=== PATIENT | female | born 1960 | race Caucasian/White ===

== ENCOUNTER 2020-05-25 19:05 | Inpatient (IN) | payer MEDICARE, SELFPAY ==
[2020-05-25 18:25] VITALS: BMI 36.3
--- NOTE | 2020-05-25 18:26 | NURSING ---
arrived from [facility] via squad.
--- NOTE | 2020-05-25 19:02 | HP.PCM_ITS ---
Problem List (1) Acute cholecystitis Status: Acute History of Present Illness Date of Admission: 05/25/20 The patient is a 59 year old F who presented with abdominal pain. The patient reports that she woke up on New Year's morning which was 2 days ago with epigastric pain radiating to the right side as well as nausea and vomiting. Over the last 2 days the pain is worsened but the nausea and vomiting has subsided. Patient is still experiencing epigastric pain radiating to the right upper quadrant. She denies any fevers or chills or Covid contacts. Past Medical History Past Medical History (Chronic Problems): Chronic Problems (Last Updated 11/14/19 @ 09:16 by Chloe Motley) Diabetes (Chronic) Asthma (Chronic) Essential hypertension (Chronic) GERD (gastroesophageal reflux disease) (Chronic) Medical History: Medical History (Last Updated 11/14/19 @ 09:16 by Chloe Motley) Diabetes (Chronic) E11.9 Bilateral edema of lower extremity (Acute) R60.0 Asthma (Chronic) J45.909 Essential hypertension (Chronic) I10 GERD (gastroesophageal reflux disease) (Chronic) K21.9 Carpal tunnel syndrome on right G56.01 DDD (degenerative disc disease) Depression F32.9 Fibromyalgia M79.7 Allergies egg Allergy (Severe, Verified 11/14/19 09:07) Hives, Swelling, Vomiting gabapentin Adverse Reaction (Severe, Verified 11/14/19 09:07) Hallucinations Home Medications: Ambulatory Orders Medication Instructions Recorded albuterol sulfate 90 mcg/actuation 2 puff INHALATION Q4H PRN g 11/14/19 aerosol inhaler amitriptyline 25 mg tablet 25 mg PO QHS 11/14/19 cholecalciferol (vitamin D3) 25 25 mcg PO DAILY 11/14/19 mcg (1,000 unit) capsule cromolyn 4 % eye drops 1 drp OPHTHALMIC 6XD 11/14/19 dicyclomine 10 mg capsule 10 mg PO Q6H PRN cap 11/14/19 ferrous sulfate 325 mg (65 mg 325 mg PO BID 11/14/19 iron) tablet fexofenadine 60 mg tablet 60 mg PO BID PRN 11/14/19 fluticasone propionate 50 1 spray INTRANASAL DAILY 11/14/19 mcg/actuation nasal spray,suspension furosemide 40 mg tablet 40 mg PO DAILY 11/14/19 ibuprofen 800 mg tablet 800 mg PO TID PRN 11/14/19 levocetirizine 5 mg tablet 5 mg PO QPM PRN 11/14/19 metformin 1,000 mg tablet 1,000 mg PO BID 11/14/19 montelukast 10 mg tablet 10 mg PO QHS 11/14/19 pantoprazole 40 mg tablet,delayed 40 mg PO BID tab 11/14/19 release paroxetine HCl 10 mg tablet 10 mg PO DAILY 11/14/19 pramipexole 1 mg tablet 1 mg PO QHS 11/14/19 Surgical History: Surgical History (Last Updated 11/14/19 @ 09:05 by Chloe Motley) History of arthroscopic surgery of elbow Z98.890 History of foot surgery Z98.890 Smoking Status: Former smoker Review of Systems Constitutional: Denies: Anorexia, Fever HEENT: Denies: Dysphasia Cardiovascular: Denies: Chest Pain Respiratory: Denies: Cough, Shortness of Breath Gastrointestinal: Reports: Abdominal Pain, Nausea, Vomiting. Denies: Constipation, Diarrhea Genitourinary: Denies: Dysuria Musculoskeletal: Denies: Joint Tenderness Skin: Denies: Jaundice Neurological: Denies: Balance problems Hematologic/ Lymphatic: Denies: Anemia VTE Information - Inpt Only VTE Present on Admission: No VTE Mechan Device Prophylaxis: SCD's - Physical Exam Vitals/I&O's: Weight: 212 lb 1.355 oz Body Mass Index (BMI) 36.3 General: Alert, Oriented x3 Lungs: Normal air movement Cardiovascular: Regular rate, Regular Rhythm Abdomen: Soft, Non-Distended, Tender - Tender in the right upper quadrant positive Walters sign Extremities: No clubbing Musculoskeletal: No Muscle Wasting Neurological: Cranial nerves II-XII grossly intact Psych/Mental Status: Normal Affect Current Medications Sodium Chloride () 250 mls @ 15 mls/hr IV .[id number] PRN PRN Reason: Saline Flush Sodium Chloride (0.9% Saline Lock 10 Ml Syringe) 10 - 40 ml IV UD PRN PRN Reason: SALINE FLUSH Assessment/Plan All Active Problems (Last Updated 11/14/19 @ 09:16 by Chloe Motley) Acute cholecystitis (Acute) Bilateral edema of lower extremity (Acute) 59-year-old female with acute cholecystitis 1. Patient was transferred from outside ER with acute cholecystitis. The patient has had 2 days of abdominal pain and a CT scan which showed thickened gallbladder wall with significant stranding around the gallbladder. The patient has an elevated white count of 18. The patient was also hypokalemic and this will be replaced. The patient was given Zosyn at the outside hospital. She was also Covid tested at the outside hospital and I am trying to receive those results. 2. I recommend antibiotics and n.p.o. overnight and laparoscopic cholecystectomy tomorrow. I discussed the procedure in detail with the patient. I discussed the risks, benefits, and alternatives of the procedure. I discussed the risks including but not limited to bleeding, infection, injury to surrounding organs such as the liver, bile duct, bowels. I did discuss the possibility of having to convert to an open procedure as well as the possibility that if any injuries occurred this may necessitate further surgery at a tertiary care center. I also discussed the possibility of partial cholecystectomy with subsequent ERCP and stent placement if the inflammation is too severe to proceed with laparoscopic cholecystectomy. Pancho Weinberg MD Pager: [facility] [address] [place] [address] [place] [address] Office:
[2020-05-25] MEDS: 0.9% Normal Saline 1,000 ML 100 ML IV (19:55)
[2020-05-25 19:56] VITALS: BP 124/79; PULSE 89; RESP 18; TEMP 37.2; O2SAT 94
[2020-05-25] MEDS: Morphine 2 MG/ML Syringe IV ×2 (20:01→23:44)
[2020-05-25 20:31] LABS: Bedside Glucose 111 mg/dL (70-110)
[2020-05-25] MEDS: Potassium Chloride 10mEq/100mL 10 MEQ/100 ML IV.SOLN. 100 MEQ IV BOLUS ×3 (21:25→23:53)
[2020-05-25] MEDS: 0.9% Saline Lock 10 ML Syringe IV (23:15)
[2020-05-25] MEDS: Pramipexole Di-HCl 1 MG Tablet PO (23:17)
[2020-05-25] MEDS: Montelukast 10 MG Tablet PO (23:17)
[2020-05-25] MEDS: Amitriptyline 25 MG Tablet PO (23:17)
[2020-05-25] MEDS: Pantoprazole Sodium 40 MG Tablet PO (23:17)
[2020-05-26] VITALS (20 sets, daily range): BP systolic 94–131; BP diastolic 58–78; PULSE 70–110; RESP 15–24; TEMP 36.6–37.2; O2SAT 89–96; BMI 35.0
[2020-05-26 00:15] LABS: Bedside Glucose 122 mg/dL (70-110)
[2020-05-26] MEDS: Potassium Chloride 10mEq/100mL 10 MEQ/100 ML IV.SOLN. 100 MEQ IV BOLUS (01:06)
--- NOTE | 2020-05-26 05:00 | EKG12_ITS ---
Test Reason : PRE-OP Blood Pressure : / mmHG Vent. Rate : 084 BPM Atrial Rate : 084 BPM P-R Int : 150 ms QRS Dur : 078 ms QT Int : 348 ms P-R-T Axes : 006 052 010 degrees QTc Int : 411 ms Normal sinus rhythm Low voltage QRS Borderline ECG No previous ECGs available Confirmed by AGATA BAKER, KOLTON ([id number]), editor managing director KACI DAVID ([id number]) on 05/27/2020 9:00:36 AM Referred By: Pancho Weinberg Confirmed By:KOLTON PARMAR MD
[2020-05-26] MEDS: 0.9% Normal Saline 1,000 ML 100 ML IV ×2 (06:24→18:30)
[2020-05-26 06:50] LABS: Bedside Glucose 111 mg/dL (70-110)
[2020-05-26 07:01] LABS: Absolute Lymphocyte Count 1.65 X10^3/uL (0.83-4.51); Absolute Neutrophil Count 12.3 X10^3/uL (2.0-7.7); Basophil# 0.03 X10^3/uL; Basophil% 0.2 % (0-1); Eosinophil# 0.03 X10^3/uL; Eosinophils% 0.2 % (0-5); Hematocrit 36.4 % (37-47); Hemoglobin 11.8 g/dL (12.0-15.0); Lymphocyte # 1.65 X10^3/ul (4.0); Lymphocyte % 10.8 % (19-41); Mean Corp Hgb Conc 32.4 g/dL (32-36); Mean Corpuscular Hgb 33.1 pg (27.0-32.0); Mean Platelet Vol. 10.5 fl (6.2-12.0); Monocyte# 1.16 X10^3/uL; Monocyte% 7.6 % (0-10); NRBC Flagged by Analyzer 0 % (0-5); Neutrophil # 12.26 X10^3/uL (2.7-7.7); Neutrophil % 79.8 % (47-70); Platelet Count 189 K/mm3 (150-450); RBC Distribution Width CV 15.6 % (11.6-14.6); RBC Distribution Width SD 58.4 fl (35.1-43.9); Red Blood Count 3.57 M/mm3 (4.2-5.4); White Blood Count 15.3 K/mm3 (4.4-11.0)
[2020-05-26 07:28] LABS: ALB/GLOB Ratio 0.4 RATIO (0.9-2.4); AST(SGOT) 19 U/L (15-37); Alanine Aminotransfer ALT/SGPT 26 U/L (13-56); Albumin, Serum 2.3 g/dL (3.2-5.0); Alkaline Phosphatase 95 U/L (45-117); Anion Gap 6 (5-15); BUN 10 mg/dL (7-18); Calcium,Total 8.2 mg/dL (8.5-10.1); Chloride 107 mmol/L (98-107); Creatinine, Serum 0.83 mg/dL (0.55-1.02); EST Glomerular Filtration Rate 74 mL/min (>60); Est Glom Filt Rate - Afr Amer 90 mL/min (>60); Estimated Creatinine Clearance 62.24 ml/min; Globulin 5.3 g/dL (2.2-4.2); Glucose 102 mg/dL (74-106); Potassium 3.9 mmol/L (3.5-5.1); Protein, Total 7.6 g/dL (6.4-8.2); Sodium Level 137 mmol/L (136-145)
[2020-05-26 07:32] LABS: Hemoglobin A1c 6.9 % (3.8-5.6)
[2020-05-26] MEDS: Albuterol 2.5 MG/3 ML VIAL.NEB. INHALATION (07:58)
--- NOTE | 2020-05-26 09:30 | GALL_PTH ---
PATIENT: CHRISTIANO QUESADA LOC: MS3 U#:[id number] AGE/SX: 59/F ROOM: ME314 RE05/26/[address]: Dr. Pancho Weinberg MD : 1960 BED: 1 DIS: 05/27/2020 SPEC #: [id number] RECD: 05/26/20 12:18 STATUS: [place] #: [id number] ACACIA: 05/26/20 09:[address]: Pancho Weinberg DEPT: SURGICAL PATHOLOGY RECD BY: Ana Payton ENTERED: 05/26/20 12:30 SP TYPE: MARISOL BETHEA DR: Dr. Christelle Retana DO Tissues: Gallbladder, NOS Procedures: Surgery Specimen Level III HEADER OPERATION: Laparoscopic cholecystectomy with IOC PRE-OP DIAGNOSIS: Acute cholecystitis TISSUE SUBMITTED: Gallbladder MICROSCOPIC DIAGNOSIS Gallbladder, cholecystectomy: Acute and chronic hemorrhagic and ulcerated cholecystitis. Reactive epithelial changes. No stones are identified in the container or in the gallbladder. SJ:lisa 05/27/2020 MICROSCOPIC DESCRIPTION Slides are reviewed. GROSS DESCRIPTION Received is one container labeled with the patient's name and designated gallbladder. The specimen consists of a gallbladder measuring 10 x 4 x 2 cm. The gallbladder is open along one aspect. This opening measures 4 cm in greatest dimension. No distinct bile duct is identified. The mucosa is reddish-hinson and granular in appearance. No stones are identified. No mass lesions are seen. The gallbladder wall averages 0.4 cm in thickness. Brim Pouncing Machine Operator sections are submitted in one cassette. / AM:lisa 05/26/2020 TC:2 CPT: 18806
[2020-05-26] MEDS: Bupiv/Epi 0.25% 30 ML Vial (10:45)
--- NOTE | 2020-05-26 11:21 | PCM.OPRPT ---
Problem List (1) Acute cholecystitis Status: Acute Report of Operation Date of Procedure: 05/26/20 Pre-Operative Diagnosis: Acute cholecystitis Post-Operative Diagnosis: Same Surgery/Procedure Performed:: Laparoscopic partial cholecystectomy Drains: WILMAR to bulb suction Description of Procedure: After obtaining informed consent patient was brought back to the operating room. General anesthesia was induced. The abdomen was prepped and draped in usual sterile fashion. A small midline incision was made superior to the umbilicus and deepened to the level of fascia. The fascia was elevated and incised. Next the peritoneum was elevated and incised in the same fashion. Finger sweep was performed and the Gusman trocar was placed into the abdomen. The balloon was inflated. The abdomen was inflated to 15 mmHg. Next a camera was introduced into the abdomen and the abdomen was inspected. Next under direct visualization three 5-mm ports were placed one subxiphoid and 2 subcostal. Next the gallbladder was elevated and retracted toward the right shoulder. The gallbladder was extremely inflamed and tightly adherent to the surrounding fat and transverse colon. It was dissected free bluntly. Once the infundibulum was reached the gallbladder perforated. The infundibulum. Gangrenous and purulent material came from the gallbladder.This was suctioned dry. I was unable to dissect the cystic duct or artery. At this time The procedure was converted to a partial cholecystectomy. Harmonic scalpel was used to circumferentially divide the gallbladder. Next the gallbladder was taken off the liver bed until the fundus was reached and removed. The gallbladder was placed into a bag. The liver bed was inspected and irrigated and suctioned dry. The remnant of the gallbladder was cauterized at the mucosal level and the liver bed appeared hemostatic. A 15 Mozambican round drain was placed into the lateral port into the gallbladder fossa across the gallbladder remnant. It was sutured to the skin using 3-0 nylon suture. The abdomen was suctioned dry. The 5 mm ports were removed under direct visualization. The umbilical port was then removed and the air was removed from the abdomen. The gallbladder was removed within the Endo Catch bag. Next using an 0 Vicryl suture the umbilical fascia was closed in a [id number] fashion. The umbilical port site was irrigated local anesthetic was administered to all the incisions. All the incisions were closed with interrupted subcuticular 4-0 Monocryl sutures followed by Steri-Strips and dressings. The patient was awoken and taken to PACU in stable condition. - Admit VTE Documentation VTE Mechan Device Prophylaxis: SCD's
[2020-05-26] MEDS: Ipratropium/Albuterol Sulfate 3 ML AMPUL.NEB INHALATION (11:45)
[2020-05-26 12:26] LABS: Bedside Glucose 150 mg/dL (70-110)
[2020-05-26] MEDS: Morphine 2 MG/ML Syringe IV ×2 (15:51→19:38)
[2020-05-26] MEDS: 0.9% Saline Lock 10 ML Syringe IV (15:52)
[2020-05-26 17:01] LABS: Bedside Glucose 230 mg/dL (70-110)
[2020-05-26] MEDS: Insulin Lispro 100 UNIT/ML INSULN.PEN SC ×2 (17:56→21:52)
[2020-05-26] MEDS: Acetaminophen 325 MG Tablet 650 MG PO (17:59)
[2020-05-26] MEDS: Montelukast 10 MG Tablet PO (20:34)
[2020-05-26] MEDS: Amitriptyline 25 MG Tablet PO (20:35)
[2020-05-26] MEDS: Pantoprazole Sodium 40 MG Tablet PO (20:35)
[2020-05-26] MEDS: Pramipexole Di-HCl 1 MG Tablet PO (20:35)
[2020-05-26 22:05] LABS: Bedside Glucose 172 mg/dL (70-110)
[2020-05-27] VITALS (10 sets, daily range): BP systolic 110–136; BP diastolic 61–97; PULSE 64–108; RESP 14–18; TEMP 36.1–37.2; O2SAT 93–98; BMI 35.0
[2020-05-27] MEDS: 0.9% Normal Saline 1,000 ML 100 ML IV ×2 (03:29→15:49)
[2020-05-27] MEDS: Morphine 2 MG/ML Syringe IV (06:16)
[2020-05-27 06:36] LABS: Bedside Glucose 132 mg/dL (70-110)
[2020-05-27 07:13] LABS: Absolute Lymphocyte Count 1.57 X10^3/uL (0.83-4.51); Absolute Neutrophil Count 11.3 X10^3/uL (2.0-7.7); Basophil# 0.02 X10^3/uL; Basophil% 0.1 % (0-1); Hematocrit 32.2 % (37-47); Hemoglobin 10.2 g/dL (12.0-15.0); Lymphocyte # 1.57 X10^3/ul (4.0); Lymphocyte % 11.3 % (19-41); Mean Corp Hgb Conc 31.7 g/dL (32-36); Mean Corpuscular Hgb 32.6 pg (27.0-32.0); Mean Corpuscular Volume 102.9 fL (81-99); Mean Platelet Vol. 10.9 fl (6.2-12.0); Monocyte# 0.64 X10^3/uL; Monocyte% 4.6 % (0-10); NRBC Flagged by Analyzer 0 % (0-5); Neutrophil # 11.34 X10^3/uL (2.7-7.7); Neutrophil % 81.6 % (47-70); Platelet Count 184 K/mm3 (150-450); RBC Distribution Width CV 15.8 % (11.6-14.6); RBC Distribution Width SD 59.5 fl (35.1-43.9); Red Blood Count 3.13 M/mm3 (4.2-5.4); White Blood Count 13.9 K/mm3 (4.4-11.0)
[2020-05-27 07:43] LABS: ALB/GLOB Ratio 0.4 RATIO (0.9-2.4); AST(SGOT) 49 U/L (15-37); Alanine Aminotransfer ALT/SGPT 55 U/L (13-56); Alkaline Phosphatase 100 U/L (45-117); Anion Gap 8 (5-15); BUN 14 mg/dL (7-18); Calcium,Total 7.6 mg/dL (8.5-10.1); Chloride 105 mmol/L (98-107); Creatinine, Serum 0.78 mg/dL (0.55-1.02); EST Glomerular Filtration Rate 80 mL/min (>60); Est Glom Filt Rate - Afr Amer 97 mL/min (>60); Estimated Creatinine Clearance 66.23 ml/min; Globulin 5.2 g/dL (2.2-4.2); Glucose 132 mg/dL (74-106); Potassium 3.8 mmol/L (3.5-5.1); Protein, Total 7.2 g/dL (6.4-8.2); Sodium Level 135 mmol/L (136-145)
--- NOTE | 2020-05-27 08:40 | PCM.PN.SRG ---
Patient Problems: Active and Suspected Problems (Last Updated 11/14/19 @ 09:16 by Chloe Motley) Acute cholecystitis (Acute) Subjective: Patient was not complain of any nausea or vomiting this morning - Physical Exam Vitals/I&O's: Vital Signs Temp Pulse Resp BP Pulse Ox 98.4 F 64 18 110/71 94 05/27/20 06:45 05/27/20 06:45 05/27/20 06:45 05/27/20 06:45 05/27/20 06:45 Oxygen Flow Rate (L/min) 2 Oxygen Delivery Method Nasal Cannula Weight: 204 lb 2.369 oz Body Mass Index (BMI) 35.0 Finger Stick Blood Glucose 150 Intake and Output for Last 24 Hours 05/25/20 05/26/20 05/27/20 23:59 23:59 23:59 Intake Total 196.58 / 196.58 3500 / 3500 1298.33 / 1298.33 Output Total 1415 / 1415 400 / 400 Balance 196.58 / -53.42 2085 / 2085 898.33 / 898.33 General: Alert, Oriented x3 Lungs: Normal air movement Abdomen: Soft, Non-Distended Laboratory Results 05/26/20 12:19: POC Glucose 150 H 05/26/20 16:48: POC Glucose 230 H 05/26/20 21:51: POC Glucose 172 H 05/27/20 06:18: WBC 13.9 H, RBC 3.13 L, Hgb 10.2 L, Hct 32.2 L, MCV 102.9 H, MCH 32.6 H, MCHC 31.7 L, RDW Std Deviation 59.5 H, RDW Coeff of Esteban 15.8 H, Plt Count 184, MPV 10.9, Immature Gran % (Auto) 2.400 H, Neut % (Auto) 81.6 H, Lymph % (Auto) 11.3 L, [place] % (Auto) 4.6, Eos % (Auto) 0.0, Baso % (Auto) 0.1, Absolute Neuts (auto) 11.3 H, Absolute Lymphs (auto) 1.57, Nucleated RBC % 0 05/27/20 06:18: Sodium 135 L, Potassium 3.8, Chloride 105, Carbon Dioxide 22.0, Anion Gap 8, BUN 14, Creatinine 0.78, Estim Creat Clear Calc 66.23, Est GFR (MDRD) Af Amer 97, Est GFR (MDRD) Non-Af 80, BUN/Creatinine Ratio 18.0, Glucose 132 H, Calcium 7.6 L, Total Bilirubin 0.40, AST 49 H, ALT 55, Alkaline Phosphatase 100, Total Protein 7.2, Albumin 2.0 L, Globulin 5.2 H, Albumin/Globulin Ratio 0.4 L 05/27/20 06:31: POC Glucose 132 H Current Medications Acetaminophen (Acetaminophen 325 Mg Tablet) 650 mg PO Q4H PRN PRN PRN Reason: Pain 1-10 or Fever Last Admin: 05/26/20 17:59 Dose: 650 mg Documented by: Albuterol Sulfate (Albuterol 2.5 Mg/3 Ml Vial.Neb.) 2.5 mg INHALATION Q4H PRN PRN PRN Reason: breathing Last Admin: 05/26/20 07:58 Dose: 2.5 mg Documented by: Amitriptyline HCl (Amitriptyline 25 Mg Tablet) 25 mg PO QHS [facility] Last Admin: 05/26/20 20:35 Dose: 25 mg Documented by: Dextrose (Dextrose 50%-Water 25 Gm/50 Ml Disp.Syrin) 0 gm IV X1 PRN; Protocol PRN Reason: Hypoglycemia Dicyclomine HCl (Dicyclomine 10 Mg Capsule) 10 mg PO Q6H PRN PRN PRN Reason: ibs Fluticasone Propionate (Fluticasone 0.05% 1 [place] Nasal.Sry) 1 spray NASAL DAILY ROSALIA Last Admin: 05/26/20 11:08 Dose: Not Given Documented by: Furosemide (Furosemide 40 Mg Tablet) 40 mg PO DAILY ROSALIA Last Admin: 05/26/20 11:08 Dose: Not Given Documented by: Glucagon (Glucagon 1 Mg/Ml Syringe) 1 mg IM .X1 PRN PRN Reason: Hypoglycemia Sodium Chloride () 250 mls @ 15 mls/hr IV .Q45T98L PRN PRN Reason: Saline Flush Last Infusion: 05/25/20 23:29 Dose: 0 mls/hr Documented by: Sodium Chloride () 1,000 mls @ 100 mls/hr IV .Q10H ROSALIA Last Admin: 05/27/20 03:29 Dose: 100 mls/hr Documented by: Piperacillin Sod/Tazobactam (Sod 3.375 gm/ Sodium Chloride) 50 mls @ 12.5 mls/hr IV Q8 [facility] Last Admin: 05/27/20 05:43 Dose: 12.5 mls/hr Documented by: Insulin Human Lispro (Insulin Lispro 100 Unit/Ml Insuln.Pen) 0 unit SC Q6 [facility]; Protocol Last Admin: 05/27/20 06:35 Dose: Not Given Documented by: Loratadine (Loratadine 10 Mg Tablet) 10 mg PO DAILY PRN PRN PRN Reason: seasonal allergies Montelukast Sodium (Montelukast 10 Mg Tablet) 10 mg PO QHS [facility] Last Admin: 05/26/20 20:34 Dose: 10 mg Documented by: Morphine Sulfate (Morphine 2 Mg/Ml Syringe) 2 - 4 mg IV Q2H PRN PRN PRN Reason: Pain Score 4-10 Last Admin: 05/27/20 06:16 Dose: 2 mg Documented by: Ondansetron HCl (Ondansetron 4 Mg/2 Ml Vial) 4 mg IV Q6H PRN PRN PRN Reason: NAUSEA Pantoprazole Sodium (Pantoprazole Sodium 40 Mg Tablet) 40 mg PO BID [facility] Last Admin: 05/26/20 20:35 Dose: 40 mg Documented by: Paroxetine HCl (Paroxetine 10 Mg Tablet) 10 mg PO DAILY [facility] Last Admin: 05/26/20 11:08 Dose: Not Given Documented by: Pramipexole Dihydrochloride (Pramipexole Di-Hcl 1 Mg Tablet) 1 mg PO QHS [facility] Last Admin: 05/26/20 20:35 Dose: 1 mg Documented by: Sodium Chloride (0.9% Saline Lock 10 Ml Syringe) 10 - 40 ml IV UD PRN PRN Reason: SALINE FLUSH Last Admin: 05/26/20 15:52 Dose: 10 ml Documented by: Medical Necessity - Tobacco Use Smoking Status: Former smoker Assessment/Plan All Active Problems (Last Updated 11/14/19 @ 09:16 by Chloe Motley) Acute cholecystitis (Acute) Bilateral edema of lower extremity (Acute) 59-year-old female status post partial laparoscopic cholecystectomy 1. The patient started having bilious drainage from her WILMAR overnight. I explained this was a possibility yesterday afternoon. I discussed ERCP with her with stent placement. I discussed this this morning and I discussed the risks of bleeding, infection, perforation of the bile duct or bowel, pancreatitis. I discussed stent placement as well as ERCP for stent removal in the future. The patient was agreeable and I will plan for ERCP this afternoon. Pancho Weinberg MD Pager: [facility] [address] [place] [address] [address] [place] [address] Office:
[2020-05-27 11:36] LABS: Bedside Glucose 124 mg/dL (70-110)
--- NOTE | 2020-05-27 12:30 | RAD_ITS ---
STUDY: ERCP. REASON FOR EXAM: Female, 59 years old. ERCP with stent placement FLUOROSCOPY TIME (if supplied): ( 43 seconds ) minutes/seconds. Single image was submitted. TECHNIQUE: An ERCP was performed by the surgeon. A single image was submitted. COMPARISON: None. FINDINGS: The common bile duct is not dilated. A stent was placed. RAD/ERCP Biliary Only IMPRESSION: Placement of a CBD stent. Electronically Signed: Nba Molina, at 8:56 EST , Service support ,
--- NOTE | 2020-05-27 14:10 | CASEMGMT ---
RN CM attempted to complete assessment at this time. Patient is out of room at procedure. CM will attempt again at later time.
--- NOTE | 2020-05-27 14:13 | OP.CCLET_ITS ---
05/27/2020 Christelle Retana Re : ERCP procedure for Imani Molina Dear Mazin This procedure was performed on Wednesday, May 27, 2020. My impressions and recommendations are as follows: Impressions : - A biliary sphincterotomy was performed. - One plastic stent was placed into the common bile duct. Recommendations : - [facility]. - Resume previous diet. My findings are described in the full procedure note, which is enclosed. If I can be of further assistance, please feel free to contact me at Doctor phone number(s): , Work: . Sincerely, Pancho Weinberg MD 05/27/2020 2:12:26 PM This report has been signed electronically.
--- NOTE | 2020-05-27 14:13 | OP.ERCP_ITS ---
Patient Name: Imani Molina Procedure Date: 05/27/2020 1:25 PM Date of : 1960 Age: 59 Procedure: ERCP Indications: Suspected bile leak Providers: Pancho Weinberg MD Referring MD: Pancho Weinberg MD Medicines: General Anesthesia Patient Profile: This is a 59 year old female. Refer to note in patient chart for documentation of history and physical. Complications: No immediate complications. Procedure: Pre-Anesthesia Assessment: - Prior to the procedure, a History and Physical was performed, and patient medications and allergies were reviewed. The patient's tolerance of previous anesthesia was also reviewed. The risks and benefits of the procedure and the sedation options and risks were discussed with the patient. All questions were answered, and informed consent was obtained. Prior Anticoagulants: The patient has taken no previous anticoagulant or antiplatelet agents. After reviewing the risks and benefits, the patient was deemed in satisfactory condition to undergo the procedure. After obtaining informed consent, the scope was passed under direct vision. Throughout the procedure, the patient's blood pressure, pulse, and oxygen saturations were monitored continuously. The [id number] endoscope was introduced through the mouth, and advanced to the duodenum and used to inject contrast into the bile duct. The ERCP was accomplished without difficulty. The patient tolerated the procedure well. Scope In: 1:53:18 PM Scope Out: 2:00:15 PM Total Procedure Duration Time 0 hours 6 minutes 57 seconds Findings: A 0.035 inch x 260 cm straight Dreamwire was passed into the biliary tree. The sphincterotome was passed over the guidewire and the bile duct was then deeply cannulated. Contrast was injected. Opacification of the main bile duct was successful. Biliary sphincterotomy was made with a monofilament sphincterotome using ERBE electrocautery. There was no post-sphincterotomy bleeding. One 7 Fr by 5 cm plastic stent with a single external flap and a single internal flap was placed into the common bile duct. Bile flowed through the stent. The stent was in good position. Impression: - A biliary sphincterotomy was performed. - One plastic stent was placed into the common bile duct. Recommendation: - [facility]. - Resume previous diet. Procedure Code(s): --- Professional --- 15665, Endoscopic retrograde cholangiopancreatography (ERCP); with placement of endoscopic stent into biliary or pancreatic duct, including pre- and post-dilation and guide wire passage, when performed, including sphincterotomy, when performed, each stent CPT copyright 2017 [employer]. All rights reserved. The codes documented in this report are preliminary and upon certified professional coder review may be revised to meet current compliance requirements. Pancho Weinberg MD 05/27/2020 2:12:26 PM This report has been signed electronically. Number of Addenda: 0 Note Initiated On: 05/27/2020 1:25 PM
--- NOTE | 2020-05-27 14:15 | DCINST_ITS ---
Discharge Diet: Light diet - advance as tolerated - SMALL PORTIONS Discharge Activity: Return to Normal Activity, May Shower Lifting Restrictions: 20 lbs for 2 weeks Additional Activity Instructions:: Pain medication may cause nausea. You should typically eat light foods as you take your pain medications. Pain medication may also cause constipation. If this is a problem for you, please discuss with your doctor. Call your doctor if your incision/area has: Continuous Slow Oozing, Sudden Increased Bleeding, Increased Pain/ Swelling, Increased Redness, Foul Smelling Discharge, Fever of 101 or Higher Call your doctor if you observe: Fever of 101 or Higher Suture Line Care: Avoid Pulling/Pushing, Avoid Pinching/Bending Drain: Suction Additional Dressing/Incision Instructions:: Leave operative bandaids on for 2 days. When you remove dressing, leave Steri-Strips on until your follow-up appointment, or until the Steri-Strips fall off on their own. Allergies/Adverse Reactions: Allergies egg Allergy (Severe, Verified 11/14/19 09:07) Hives, Swelling, Vomiting gabapentin Adverse Reaction (Severe, Verified 11/14/19 09:07) Hallucinations Medications to take at Discharge albuterol sulfate 90 mcg/actuation aerosol inhaler 2 puff INHALATION Q4H PRN g 11/14/19 amitriptyline 25 mg tablet 25 mg PO QHS 11/14/19 cholecalciferol (vitamin D3) 25 mcg (1,000 unit) capsule 25 mcg PO DAILY 11/14/19 cromolyn 4 % eye drops 1 drp OPHTHALMIC 6XD 11/14/19 dicyclomine 10 mg capsule 10 mg PO Q6H PRN cap 11/14/19 ferrous sulfate 325 mg (65 mg iron) tablet 325 mg PO BID 11/14/19 fexofenadine 60 mg tablet 60 mg PO BID PRN 11/14/19 fluticasone propionate 50 mcg/actuation nasal spray,suspension 1 spray INTR ANASAL DAILY 11/14/19 furosemide 40 mg tablet 40 mg PO DAILY 11/14/19 ibuprofen 800 mg tablet 800 mg PO TID PRN 11/14/19 levocetirizine 5 mg tablet 5 mg PO QPM PRN 11/14/19 metformin 1,000 mg tablet 1,000 mg PO BID 11/14/19 montelukast 10 mg tablet 10 mg PO QHS 11/14/19 pantoprazole 40 mg tablet,delayed release 40 mg PO BID tab 11/14/19 paroxetine HCl 10 mg tablet 10 mg PO DAILY 11/14/19 pramipexole 1 mg tablet 1 mg PO QHS 11/14/19 Oxycodone HCl/Acetaminophen [Percocet 5-325 mg Tablet] 1 - 2 tab PO Q6H PRN PRN 4 Days #10 tablet 05/27/20 The following prescriptions were given: Oxycodone HCl/Acetaminophen [Percocet 5-325 mg Tablet] 1 - 2 tab PO Q6H PRN PRN 4 Days #10 tablet PRN Reason: Pain Score 4-10/10 Transmission Status: Sent to [facility] Primary Care Physician: Christelle Retana DO [Primary Care Provider] - Test Results: Test results from this visit will be discussed in further detail at your follow- up appointment, if applicable. Please Follow Up With: Pancho Weinberg MD When: Call tomorrow to make appt in 2-3 days [phone]
--- NOTE | 2020-05-27 14:17 | PCM.DC.SUM ---
Discharge Date and Diagnosis - Problem List Patient Problems: Active and Suspected Problems (Last Updated 11/14/19 @ 09:16 by Chloe Motley) Acute cholecystitis (Acute) Date of Admission: 05/25/20 Date of Discharge: 05/27/20 - Primary Discharge Diagnosis Acute Problems: Active Problems (Last Updated 11/14/19 @ 09:16 by Chloe Motley) Acute cholecystitis (Acute) - Secondary Discharge Diagnosis Chronic Problems: Chronic Problems (Last Updated 11/14/19 @ 09:16 by Chloe Motley) Diabetes (Chronic) Asthma (Chronic) Essential hypertension (Chronic) GERD (gastroesophageal reflux disease) (Chronic) Hospital Course and Treatment Imaging Results: 05/27/20 12:30 ERCP Biliary Only [RAD] Urgent O.R. Fluoro for C-Arm [RAD] Urgent Operations: cholecystecomy, ERCP Procedures: None Summary of Care Provided: The patient is a 59 year old F was admitted with acute cholecystitis. The following morning she was taken for laparoscopic cholecystectomy was found to have a necrotic gallbladder. A partial cholecystectomy was performed and a drain was placed in the gallbladder fossa. The following morning the gallbladder fossa was draining bilious fluid. Patient was taken that afternoon for ERCP with stent placement. Patient was then started on a regular diet and discharged home was tolerating a regular diet. Patient Problems: Active and Suspected Problems (Last Updated 11/14/19 @ 09:16 by Chloe Motley) Acute cholecystitis (Acute) - Physical Exam Vitals/I&O's: Vital Signs Temp Pulse Resp BP Pulse Ox 98.6 F 69 18 113/76 95 05/27/20 11:49 05/27/20 11:49 05/27/20 11:49 05/27/20 11:49 05/27/20 11:49 Oxygen Flow Rate (L/min) 2 Oxygen Delivery Method Room Air Weight: 204 lb 2.369 oz Body Mass Index (BMI) 35.0 Finger Stick Blood Glucose 150 Intake and Output for Last 24 Hours 05/25/20 05/26/20 05/27/20 23:59 23:59 23:59 Intake Total 196.58 / 196.58 3500 / 3500 1348.33 / 1348.33 Output Total 1415 / 1415 1010 / 1010 Balance 196.58 / -53.42 2085 / 2085 338.33 / 338.33 Laboratory Results 05/26/20 16:48: POC Glucose 230 H 05/26/20 21:51: POC Glucose 172 H 05/27/20 06:18: WBC 13.9 H, RBC 3.13 L, Hgb 10.2 L, Hct 32.2 L, MCV 102.9 H, MCH 32.6 H, MCHC 31.7 L, RDW Std Deviation 59.5 H, RDW Coeff of Esteban 15.8 H, Plt Count 184, MPV 10.9, Immature Gran % (Auto) 2.400 H, Neut % (Auto) 81.6 H, Lymph % (Auto) 11.3 L, [place] % (Auto) 4.6, Eos % (Auto) 0.0, Baso % (Auto) 0.1, Absolute Neuts (auto) 11.3 H, Absolute Lymphs (auto) 1.57, Nucleated RBC % 0 05/27/20 06:18: Sodium 135 L, Potassium 3.8, Chloride 105, Carbon Dioxide 22.0, Anion Gap 8, BUN 14, Creatinine 0.78, Estim Creat Clear Calc 66.23, Est GFR (MDRD) Af Amer 97, Est GFR (MDRD) Non-Af 80, BUN/Creatinine Ratio 18.0, Glucose 132 H, Calcium 7.6 L, Total Bilirubin 0.40, AST 49 H, ALT 55, Alkaline Phosphatase 100, Total Protein 7.2, Albumin 2.0 L, Globulin 5.2 H, Albumin/Globulin Ratio 0.4 L 05/27/20 06:31: POC Glucose 132 H 05/27/20 11:32: POC Glucose 124 H Current Medications Acetaminophen (Acetaminophen 325 Mg Tablet) 650 mg PO Q4H PRN PRN PRN Reason: Pain 1-10 or Fever Last Admin: 05/26/20 17:59 Dose: 650 mg Documented by: Albuterol Sulfate (Albuterol 2.5 Mg/3 Ml Vial.Neb.) 2.5 mg INHALATION Q4H PRN PRN PRN Reason: breathing Last Admin: 05/26/20 07:58 Dose: 2.5 mg Documented by: Amitriptyline HCl (Amitriptyline 25 Mg Tablet) 25 mg PO QHS ROSALIA Last Admin: 05/26/20 20:35 Dose: 25 mg Documented by: Dextrose (Dextrose 50%-Water 25 Gm/50 Ml Disp.Syrin) 0 gm IV X1 PRN; Protocol PRN Reason: Hypoglycemia Dicyclomine HCl (Dicyclomine 10 Mg Capsule) 10 mg PO Q6H PRN PRN PRN Reason: ibs Fluticasone Propionate (Fluticasone 0.05% 1 [place] Nasal.Sry) 1 spray NASAL DAILY [facility] Last Admin: 05/27/20 12:19 Dose: Not Given Documented by: Furosemide (Furosemide 40 Mg Tablet) 40 mg PO DAILY [facility] Last Admin: 05/27/20 12:19 Dose: Not Given Documented by: Glucagon (Glucagon 1 Mg/Ml Syringe) 1 mg IM .X1 PRN PRN Reason: Hypoglycemia Sodium Chloride () 250 mls @ 15 mls/hr IV .[id number] PRN PRN Reason: Saline Flush Last Infusion: 05/25/20 23:29 Dose: 0 mls/hr Documented by: Sodium Chloride () 1,000 mls @ 100 mls/hr IV .Q10H [facility] Last Admin: 05/27/20 03:29 Dose: 100 mls/hr Documented by: Piperacillin Sod/Tazobactam (Sod 3.375 gm/ Sodium Chloride) 50 mls @ 12.5 mls/hr IV Q8 [facility] Last Infusion: 05/27/20 09:45 Dose: Infused Documented by: Insulin Human Lispro (Insulin Lispro 100 Unit/Ml Insuln.Pen) 0 unit SC Q6 [facility]; Protocol Last Admin: 05/27/20 12:21 Dose: Not Given Documented by: Loratadine (Loratadine 10 Mg Tablet) 10 mg PO DAILY PRN PRN PRN Reason: seasonal allergies Montelukast Sodium (Montelukast 10 Mg Tablet) 10 mg PO QHS [facility] Last Admin: 05/26/20 20:34 Dose: 10 mg Documented by: Morphine Sulfate (Morphine 2 Mg/Ml Syringe) 2 - 4 mg IV Q2H PRN PRN PRN Reason: Pain Score 4-10 Last Admin: 05/27/20 06:16 Dose: 2 mg Documented by: Ondansetron HCl (Ondansetron 4 Mg/2 Ml Vial) 4 mg IV Q6H PRN PRN PRN Reason: NAUSEA Pantoprazole Sodium (Pantoprazole Sodium 40 Mg Tablet) 40 mg PO BID [facility] Last Admin: 05/27/20 12:20 Dose: Not Given Documented by: Paroxetine HCl (Paroxetine 10 Mg Tablet) 10 mg PO DAILY [facility] Last Admin: 05/27/20 12:19 Dose: Not Given Documented by: Pramipexole Dihydrochloride (Pramipexole Di-Hcl 1 Mg Tablet) 1 mg PO QHS [facility] Last Admin: 05/26/20 20:35 Dose: 1 mg Documented by: Sodium Chloride (0.9% Saline Lock 10 Ml Syringe) 10 - 40 ml IV UD PRN PRN Reason: SALINE FLUSH Last Admin: 05/26/20 15:52 Dose: 10 ml Documented by: Discharge Diet: Light diet - advance as tolerated - SMALL PORTIONS Discharge Activity: Return to Normal Activity, May Shower Additional Activity Instructions:: Pain medication may cause nausea. You should typically eat light foods as you take your pain medications. Pain medication may also cause constipation. If this is a problem for you, please discuss with your doctor. Call your doctor if your incision/area has: Continuous Slow Oozing, Sudden Increased Bleeding, Increased Pain/ Swelling, Increased Redness, Foul Smelling Discharge, Fever of 101 or Higher Call your doctor if you observe: Fever of 101 or Higher Suture Line Care: Avoid Pulling/Pushing, Avoid Pinching/Bending Drain: Suction Additional Dressing/Incision Instructions:: Leave operative bandaids on for 2 days. When you remove dressing, leave Steri-Strips on until your follow-up appointment, or until the Steri-Strips fall off on their own. Home Medications: Medications to take at Discharge albuterol sulfate 90 mcg/actuation aerosol inhaler 2 puff INHALATION Q4H PRN g 11/14/19 amitriptyline 25 mg tablet 25 mg PO QHS 11/14/19 cholecalciferol (vitamin D3) 25 mcg (1,000 unit) capsule 25 mcg PO DAILY 11/14/19 cromolyn 4 % eye drops 1 drp OPHTHALMIC 6XD 11/14/19 dicyclomine 10 mg capsule 10 mg PO Q6H PRN cap 11/14/19 ferrous sulfate 325 mg (65 mg iron) tablet 325 mg PO BID 11/14/19 fexofenadine 60 mg tablet 60 mg PO BID PRN 11/14/19 fluticasone propionate 50 mcg/actuation nasal spray,suspension 1 spray INTRANASAL DAILY 06/24/20 furosemide 40 mg tablet 40 mg PO DAILY 11/14/19 ibuprofen 800 mg tablet 800 mg PO TID PRN 11/14/19 levocetirizine 5 mg tablet 5 mg PO QPM PRN 11/14/19 metformin 1,000 mg tablet 1,000 mg PO BID 11/14/19 montelukast 10 mg tablet 10 mg PO QHS 11/14/19 pantoprazole 40 mg tablet,delayed release 40 mg PO BID tab 11/14/19 paroxetine HCl 10 mg tablet 10 mg PO DAILY 11/14/19 pramipexole 1 mg tablet 1 mg PO QHS 11/14/19 Oxycodone HCl/Acetaminophen [Percocet 5-325 mg Tablet] 1 - 2 tab PO Q6H PRN PRN 4 Days #10 tablet 05/27/20 Following Prescriptions Were Given to Patient: Oxycodone HCl/Acetaminophen [Percocet 5-325 mg Tablet] 1 - 2 tab PO Q6H PRN PRN 4 Days #10 tablet PRN Reason: Pain Score 4-10/10 Transmission Status: Sent to [facility] Primary Care Physician: Christelle Retana DO [Primary Care Provider] - Please Follow Up With: Pancho Weinberg MD When: Call tomorrow to make appt in 2-3 days [phone] Medical Necessity - Tobacco Use Smoking Status: Former smoker Meaningful Use Info Meaningful Use Diagnoses (Choose all that apply): None applicable
[2020-05-27 14:41] LABS: Bedside Glucose 134 mg/dL (70-110)
--- NOTE | 2020-05-27 15:51 | CASEMGMT ---
RN NAOMI Face to Face with patient for initial transition planning/care coordination assessment. RN CM introduced self and role at [facility]. Patient lying in bed, alert and oriented, at bedside. Patient willing to participate in assessment and is able to answer all questions appropriately. Care providers, pharmacy, and demographics verified. Patient wishes to discharge home, denies need for home health at this time. Patient states she has no further needs or concerns at this time. CM to follow for discharge planning needs that may arise. PCP: [facility] Specialists: none [id number] Pres[facility] Benefit: yes Living Will/HPOA: none LNOK: Living Arrangements: Patient lives with in a mobile home with 5 steps and railing to enter the home. Patient states she is independent at home. Transportation: self/ DME/HHC: Patient states she has shower chair, grab bars, walker, cpap, nebulizer. Patient denies previous HHC. Disposition Plan: Patient to discharge home with family support and follow-up plans in place. Merary CISSE, RN, CM
[2020-05-27 16:56] LABS: Bedside Glucose 191 mg/dL (70-110)
== END 2020-05-27 17:30 | disposition home or self-care (01) | DRG 418 ==
PROVIDERS: Anesthesiology; Admitting Provider Surgery; PCP Family Medicine; Referring Provider Surgery; Visit Provider Surgery
PROC: 0FB44ZZ Excision of Gallbladder, Percutaneous Endoscopic Approach (ICD-10-PCS; CPT 47610; principal; 2020-05-26 09:10)
PROC: 0F798DZ Dilation of Common Bile Duct with Intraluminal Device, Via Natural or Artificial Opening Endoscopic (ICD-10-PCS; CPT 43260; principal; 2020-05-27 12:30)
DX: K81.0 Acute cholecystitis (principal); K82.A2 Perforation of gallbladder in cholecystitis; K82.A1 Gangrene of gallbladder in cholecystitis; E87.6 Hypokalemia; Z20.822 Contact with and (suspected) exposure to COVID-19; E11.9 Type 2 diabetes mellitus without complications; I10 Essential (primary) hypertension; J45.909 Unspecified asthma, uncomplicated; M79.7 Fibromyalgia; G47.30 Sleep apnea, unspecified; K21.9 Gastro-esophageal reflux disease without esophagitis; F32.9 Major depressive disorder, single episode, unspecified; Z79.84 Long term (current) use of oral hypoglycemic drugs; Z79.899 Other long term (current) drug therapy; Z78.0 Asymptomatic menopausal state; Z87.891 Personal history of nicotine dependence
CPT/HCPCS: 36415; 74328; 76000; 80053; 82962; 83036; 85025; 88304; 93005; 94640; 97802; J7030; J7040; J7050; A4216; J2405

== ENCOUNTER 2020-08-08 09:25 | Day surgery (SDC) | payer MEDICARE, SELFPAY ==
[2020-05-27 11:49] VITALS: BMI 35.0
--- NOTE | 2020-08-08 09:38 | EKG12_ITS ---
Test Reason : PRE OP Blood Pressure : / mmHG Vent. Rate : 086 BPM Atrial Rate : 086 BPM P-R Int : 154 ms QRS Dur : 088 ms QT Int : 364 ms P-R-T Axes : 030 065 028 degrees QTc Int : 435 ms Normal sinus rhythm Low voltage QRS Borderline ECG When compared with ECG of 26-MAY-2020 05:39, No significant change was found Confirmed by AGATA BAKER, KOLTON ([id number]), movie editor KACI DAVID ([id number]) on 08/12/2020 9:18:55 AM Referred By: Christelle Retana Confirmed By:KOLTON PARMAR MD
[2020-08-08 09:45] VITALS: BP 104/56; PULSE 85; RESP 16; TEMP 36.8; O2SAT 100; BMI 34.9
[2020-08-08] MEDS: Lactated Ringers 1,000 ML 100 ML IV (10:00)
--- NOTE | 2020-08-08 10:05 | HP.PCM_ITS ---
Problem List (1) Acute cholecystitis Status: Acute History of Present Illness Date of Admission: 08/08/20 The patient is a 59 year old F patient had a history of acute cholecystitis which was very severe and required partial cholecystectomy with biliary stent placement for bile leak. The patient reports she is doing well with no nausea or vomiting and no abdominal pain. Past Medical History Past Medical History (Chronic Problems): Chronic Problems (Last Reviewed 06/13/20 @ 13:46 by Priyanka Rosas) Diabetes (Chronic) Asthma (Chronic) Essential hypertension (Chronic) GERD (gastroesophageal reflux disease) (Chronic) Medical History: Medical History (Last Reviewed 06/13/20 @ 13:46 by Priyanka Rosas) Acute cholecystitis (Acute) K81.0 Diabetes (Chronic) E11.9 Bilateral edema of lower extremity (Acute) R60.0 Asthma (Chronic) J45.909 Essential hypertension (Chronic) I10 GERD (gastroesophageal reflux disease) (Chronic) K21.9 Carpal tunnel syndrome on right G56.01 DDD (degenerative disc disease) Depression F32.9 Fibromyalgia M79.7 Allergies egg Allergy (Severe, Verified 08/04/20 12:11) Hives, Swelling, Vomiting gabapentin Adverse Reaction (Severe, Verified 08/04/20 12:11) Hallucinations Home Medications: Ambulatory Orders Medication Instructions Recorded albuterol sulfate 90 mcg/actuation 2 puff INHALATION Q4H PRN g 11/14/19 aerosol inhaler amitriptyline 25 mg tablet 25 mg PO QHS 11/14/19 cholecalciferol (vitamin D3) 25 25 mcg PO DAILY 11/14/19 mcg (1,000 unit) capsule cromolyn 4 % eye drops 1 drp OPHTHALMIC 6XD 11/14/19 dicyclomine 10 mg capsule 10 mg PO Q6H PRN cap 11/14/19 ferrous sulfate 325 mg (65 mg 325 mg PO BID 11/14/19 iron) tablet fexofenadine 60 mg tablet 60 mg PO BID PRN 11/14/19 fluticasone propionate 50 1 spray INTRANASAL DAILY 11/14/19 mcg/actuation nasal spray,suspension furosemide 40 mg tablet 40 mg PO DAILY 11/14/19 ibuprofen 800 mg tablet 800 mg PO TID PRN 11/14/19 levocetirizine 5 mg tablet 5 mg PO QPM PRN 11/14/19 metformin 1,000 mg tablet 1,000 mg PO BID 11/14/19 montelukast 10 mg tablet 10 mg PO QHS 11/14/19 pantoprazole 40 mg tablet,delayed 40 mg PO BID tab 11/14/19 release paroxetine HCl 10 mg tablet 10 mg PO DAILY 11/14/19 pramipexole 1 mg tablet 1 mg PO QHS 11/14/19 sucralfate 1 gram tablet 1 g PO QACHS #120 tab 06/05/20 Surgical History: Surgical History (Last Reviewed 06/13/20 @ 13:46 by Priyanka Rosas) history lap will/ERCP Onset Date: ~05/26/20 History of arthroscopic surgery of elbow Z98.890 History of foot surgery Z98.890 Smoking Status: Former smoker Tobacco Use: Non-smoker Review of Systems Constitutional: Denies: Anorexia, Fever HEENT: Denies: Difficulty Swallowing Cardiovascular: Denies: Chest Pain Respiratory: Denies: Cough, Shortness of Breath Gastrointestinal: Denies: Abdominal Pain, Nausea, Vomiting Musculoskeletal: Denies: Joint swelling VTE Information - Inpt Only VTE Present on Admission: No VTE Mechan Device Prophylaxis: SCD's - Physical Exam Vitals/I&O's: Body Mass Index (BMI) 35.0 Finger Stick Blood Glucose 134 General: Alert, Oriented x3 Neck: No JVD Lungs: Normal air movement Cardiovascular: Regular rate, Regular Rhythm Abdomen: Soft, Non Tender, Non-Distended Microbiology Past 72 Hours 08/07/20 13:00 Interface Orders SARS-CoV-2 Antigen (Rapid) - Final Assessment/Plan All Active Problems (Last Reviewed 06/13/20 @ 13:46 by Priyanka Rosas) Acute cholecystitis (Acute) Bilateral edema of lower extremity (Acute) 59-year-old female with history of acute cholecystitis and partial cholecystectomy with biliary stent placement 1. Patient is here for ERCP and stent removal. I informed her that I would r emove the stent and do a cholangiogram to ensure that there is no ongoing leak from her partial cholecystectomy and if so she would have the stent fully removed. If there is still a leak I would replace the stent. I discussed the risks of the procedure including not limited to bleeding, infection, perforation of the bile duct or bowel, pancreatitis. The patient understands the risks and is willing to proceed. Pancho Weinberg MD Pager: [facility] [address] [place] [address], [address] [place] [address] Office:
[2020-08-08 10:10] LABS: Bedside Glucose 120 mg/dL (70-110)
--- NOTE | 2020-08-08 10:30 | RAD_ITS ---
CLINICAL HISTORY: PAIN COMPARISON: None TECHNIQUE: 1:31 minutes of fluoroscopy of the abdomen was utilized and operating room during an ERCP and 3 images suspended for interpretation. FINDINGS: Suspect stricture of the distal common bile duct treated with balloon sphincterotomy. RAD/ERCP Biliary/Pancreas IMPRESSION: Fluoroscopy during ERCP. Electronically Signed: Boston Agosto MD at 7:56 EDT Tel , Service support ,
--- NOTE | 2020-08-08 10:55 | OP.ERCP_ITS ---
Patient Name: Imani Molina Procedure Date: 08/08/2020 10:22 AM Date of : 1960 Age: 59 Procedure: ERCP Indications: Follow-up of bile leak Providers: Pancho Weinberg MD Referring MD: Christelle Retana Medicines: General Anesthesia Patient Profile: This is a 59 year old female. Refer to note in patient chart for documentation of history and physical. Complications: No immediate complications. Estimated blood loss: None Procedure: Pre-Anesthesia Assessment: - Prior to the procedure, a History and Physical was performed, and patient medications and allergies were reviewed. The patient's tolerance of previous anesthesia was also reviewed. The risks and benefits of the procedure and the sedation options and risks were discussed with the patient. All questions were answered, and informed consent was obtained. Prior Anticoagulants: The patient has taken no previous anticoagulant or antiplatelet agents. After reviewing the risks and benefits, the patient was deemed in satisfactory condition to undergo the procedure. After obtaining informed consent, the scope was passed under direct vision. Throughout the procedure, the patient's blood pressure, pulse, and oxygen saturations were monitored continuously. The duodenoscope was introduced through the mouth, and advanced to the duodenum and used to inject contrast into the bile duct. The ERCP was accomplished without difficulty. The patient tolerated the procedure well. Scope In: 10:42:49 AM Scope Out: 10:49:12 AM Total Procedure Duration Time 0 hours 6 minutes 23 seconds Findings: One stent was removed from the biliary tree using a snare. A 0.035 inch x 260 cm straight Dreamwire was passed into the biliary tree. The biliary tree was swept with a 12 mm balloon starting at the bifurcation. There were no stones removed and pressure cholangiogram was performed with balloon inflated. no bile leak noted. Wire and balloon were removed from CBD. Impression: - One stent was removed from the biliary tree. - The biliary tree was swept. Recommendation: - Discharge patient to home. - Resume previous diet. - Return to my office PRN. Procedure Code(s): --- Professional --- 09242, Endoscopic retrograde cholangiopancreatography (ERCP); with removal of foreign body(s) or stent(s) from biliary/pancreatic duct(s) Diagnosis Code(s): --- Professional --- Z46.59, Encounter for fitting and adjustment of other gastrointestinal appliance and device K83.8, Other specified diseases of biliary tract CPT copyright 2017 [employer]. All rights reserved. The codes documented in this report are preliminary and upon auditing coder review may be revised to meet current compliance requirements. Pancho Weinberg MD 08/08/2020 10:55:26 AM This report has been signed electronically. Number of Addenda: 0 Note Initiated On: 08/08/2020 10:22 AM
--- NOTE | 2020-08-08 10:56 | OP.CCLET_ITS ---
08/08/2020 Christelle Retana Re : ERCP procedure for Imani Molina Deacarole Retana This procedure was performed on Saturday, August 08, 2020. My impressions and recommendations are as follows: Impressions : - One stent was removed from the biliary tree. - The biliary tree was swept. Recommendations : - Discharge patient to home. - Resume previous diet. - Return to my office PRN. My findings are described in the full procedure note, which is enclosed. If I can be of further assistance, please feel free to contact me at Doctor phone number(s): , Work: . Sincerely, Pancho Weinberg MD 08/08/2020 10:55:26 AM This report has been signed electronically.
[2020-08-08 11:06] VITALS: BP 104/56; BP 94/54; PULSE 95; RESP 14; TEMP 36.4; O2SAT 98
[2020-08-08 11:15] VITALS: BP 104/56; BP 94/54; PULSE 97; RESP 16; O2SAT 99
[2020-08-08 11:30] VITALS: BP 104/56; BP 104/74; PULSE 105; RESP 18; O2SAT 100
[2020-08-08 11:40] VITALS: BP 104/56; BP 109/66; PULSE 105; RESP 18; TEMP 36.1; O2SAT 99
[2020-08-08 11:41] LABS: Bedside Glucose 117 mg/dL (70-110)
[2020-08-08 12:02] VITALS: BP 104/56
== END 2020-08-08 12:04 | disposition home or self-care (01) ==
LOC: EN 09:26 → AC 09:26
PROVIDERS: PCP Family Medicine; Referring Provider Family Medicine; Visit Provider Surgery
PROC: (CPT 43260; principal; 2020-08-08 10:00)
DX: Z46.59 Encounter for fitting and adjustment of other gastrointestinal appliance and device (principal); K83.8 Other specified diseases of biliary tract; Z20.822 Contact with and (suspected) exposure to COVID-19; E11.9 Type 2 diabetes mellitus without complications; I10 Essential (primary) hypertension; J45.909 Unspecified asthma, uncomplicated; M79.7 Fibromyalgia; G47.30 Sleep apnea, unspecified; K21.9 Gastro-esophageal reflux disease without esophagitis; F32.9 Major depressive disorder, single episode, unspecified; Z79.84 Long term (current) use of oral hypoglycemic drugs; Z78.0 Asymptomatic menopausal state; Z87.891 Personal history of nicotine dependence
CPT/HCPCS: 43275; 74330; 76000; 82962; 87426; 93005; C9803; J7120; J2405

== ENCOUNTER → 2020-12-09 09:46 | Outpatient (CLI) | payer MEDICARE, SELFPAY ==
[2020-10-29 10:25] VITALS: BMI 31.0
--- NOTE | 2020-12-09 09:50 | MRI_ITS ---
STUDY: MRI RIGHT SHOULDER REASON FOR EXAM: Right shoulder pain and decreased range of motion, right shoulder injury from a fall 1 month ago. TECHNIQUE: Standardized fat and water weighted pulse sequences were obtained in all 3 orthogonal planes. COMPARISON: Radiographs 10/29/2020. FINDINGS: There is a full-thickness tear of the supraspinatus and infraspinatus tendons retracted approximately 2.3 cm (T2 coronal images 5-13). Normal subscapularis tendon. Normal teres minor tendon. There is mild atrophy with mild partial fat replacement of the supraspinatus and infraspinatus muscles (T2 sagittal images 17-22). Normal subscapularis muscle. Normal teres minor muscle. There is a small glenohumeral joint effusion. There is synovitis in the subscapularis recess (T2 coronal images 14-16). There is superior migration of the humeral head secondary to the retracted rotator cuff tear. Normal biceps labral complex. There is mild tendinosis of the intracapsular long biceps tendon (T2 sagittal image 14). Normal labrum. Normal capsulo- ligamentous complex. There is acromioclavicular arthrosis with mild hypertrophic changes (T2 sagittal image 12). There is a Type III morphology (anterior hook) (T2 sagittal image 11), with a neutral orientation. There is subacromial-subdeltoid bursal fluid. There is thickening of the coracoacromial ligament (T2 sagittal images 10, 11). Normal deltoid muscle. Normal trapezius muscle. MRI/Upper Ext Joint Only(Routine) IMPRESSION: Full-thickness tear of the supraspinatus and infraspinatus tendons. Mild atrophy of the supraspinatus and infraspinatus muscles. Mild tendinosis of the long biceps tendon. Acromioclavicular arthrosis. Thickening of the coracoacromial ligament. Synovitis in the subscapularis recess. Glenohumeral joint fluid communicating with the subacromial-subdeltoid bursa. Electronically Signed: Luan M. Cali, MD at 12:30 EDT Tel , Service support ,
== END ==
PROVIDERS: PCP Family Medicine; Referring Provider Physician Assistant; Visit Provider Physician Assistant
DX: M25.511 Pain in right shoulder (principal); M75.101 Unspecified rotator cuff tear or rupture of right shoulder, not specified as traumatic; W19.XXXA Unspecified fall, initial encounter; Y93.9 Activity, unspecified; Y92.9 Unspecified place or not applicable; Y99.9 Unspecified external cause status
CPT/HCPCS: 73221

== ENCOUNTER 2021-01-09 05:50 | Day surgery (SDC) | payer MEDICARE, SELFPAY ==
[2020-12-11 13:18] VITALS: BMI 31.0
[2021-01-06 16:44] LABS: Hematocrit 32.9 % (37-47); Hemoglobin 10.6 g/dL (12.0-15.0); Mean Corp Hgb Conc 32.2 g/dL (32-36); Mean Corpuscular Hgb 32.5 pg (27.0-32.0); Mean Corpuscular Volume 100.9 fL (81-99); Mean Platelet Vol. 9.9 fl (6.2-12.0); Platelet Count 266 K/mm3 (150-450); RBC Distribution Width CV 16.5 % (11.6-14.6); RBC Distribution Width SD 61.2 fl (35.1-43.9); Red Blood Count 3.26 M/mm3 (4.2-5.4); White Blood Count 8.8 K/mm3 (4.4-11.0)
[2021-01-06 17:27] LABS: International Normalized Ratio 1.2; Prothrombin Time (Protime)PT. 14.4 SECONDS (11.7-14.9)
[2021-01-06 17:35] LABS: Partial Thromboplast Time 31.8 Seconds (24.1-36.2)
[2021-01-06 17:39] LABS: Anion Gap 8 (5-15); BUN 8 mg/dL (7-18); BUN/Creat Ratio 8.3 RATIO (10-20); Calcium,Total 9.1 mg/dL (8.5-10.1); Chloride 105 mmol/L (98-107); Creatinine, Serum 0.96 mg/dL (0.55-1.02); EST Glomerular Filtration Rate 63 mL/min (>60); Est Glom Filt Rate - Afr Amer 76 mL/min (>60); Glucose 90 mg/dL (74-106); Potassium 3.7 mmol/L (3.5-5.1); Sodium Level 137 mmol/L (136-145)
[2021-01-06 17:44] LABS: Hemoglobin A1c 6.7 % (3.8-5.6)
[2021-01-09] VITALS (7 sets, daily range): BP systolic 103–119; BP diastolic 61–88; PULSE 70–86; RESP 14–18; TEMP 36.1–36.5; O2SAT 90–100; BMI 35.9
[2021-01-09] MEDS: Lactated Ringers 1,000 ML 100 ML IV (06:34)
--- NOTE | 2021-01-09 06:36 | SUR.PREOP ---
assessment; patient complaint of numb fingers on right hand. patient states that dr. clark is aware.
[2021-01-09 06:45] LABS: Bedside Glucose 105 mg/dL (70-110)
--- NOTE | 2021-01-09 07:12 | HP.PCM_ITS ---
History and Physical Date of Admission: 01/09/21 Date of Service: 12/24/20 MR#:[id number]: CHRISTIANO QUESADA #:[id number] Provider:Dr. Chris Johnson, Age/Sex: 60/F [facility] [place]Signed Intake Intake Visit Reasons: right shoulder Allergies egg Allergy (Severe, Verified 12/24/20 11:26) Hives, Swelling, Vomiting gabapentin Adverse Reaction (Severe, Verified 12/24/20 11:26) Hallucinations Medications albuterol sulfate 90 mcg/actuation aerosol inhaler 2 puff INHALATION Q4H PRN g 11/14/19 [History Confirmed 12/24/20] cholecalciferol (vitamin D3) 25 mcg (1,000 unit) capsule 25 mcg PO DAILY 11/14/19 [History Confirmed 12/24/20] cromolyn 4 % eye drops 1 drp OPHTHALMIC 6XD 11/14/19 [History Confirmed 12/24/20] dicyclomine 10 mg capsule 10 mg PO Q6H PRN cap 11/14/19 [History Confirmed 12/24/20] ferrous sulfate 325 mg (65 mg iron) tablet 325 mg PO BID 11/14/19 [History Confirmed 12/24/20] fexofenadine 60 mg tablet 60 mg PO BID PRN 11/14/19 [History Confirmed 12/24/20] fluticasone propionate 50 mcg/actuation nasal spray,suspension 1 spray INTRANASAL DAILY 11/14/19 [History Confirmed 12/24/20] furosemide 40 mg tablet 40 mg PO DAILY 11/14/19 [History Confirmed 12/24/20] ibuprofen 800 mg tablet 800 mg PO TID PRN 11/14/19 [History Confirmed 12/24/20] metformin 1,000 mg tablet 1,000 mg PO BID 11/14/19 [History Confirmed 12/24/20] montelukast 10 mg tablet 10 mg PO QHS 11/14/19 [History Confirmed 12/24/20] pantoprazole 40 mg tablet,delayed release 40 mg PO BID tab 11/14/19 [History Confirmed 12/24/20] paroxetine HCl 10 mg tablet 10 mg PO DAILY 11/14/19 [History Confirmed 12/24/20] pramipexole 1 mg tablet 1 mg PO QHS 11/14/19 [History Confirmed 12/24/20] sucralfate 1 gram tablet 1 g PO QACHS #120 tab 06/05/20 [Rx Confirmed 12/24/20] potassium chloride 20 mEq tablet,extended release(part/cryst) tablet PO 10/29/20 [History Confirmed 12/24/20] [facility] Medical History (Updated 12/24/20 @ 13:[address] Chris Johnson, ) Acute cholecystitis Asthma Bilateral edema of lower extremity Carpal tunnel syndrome on right DDD (degenerative disc disease) Depression Diabetes Essential hypertension Fibromyalgia GERD (gastroesophageal reflux disease) Surgical History history lap will/ERCP (~05/26/20) History of arthroscopic surgery of elbow History of foot surgery Family History Mother Heart disease Hypertension Diabetes Kidney disease Aunt Cancer Sister Arthritis Social History (Updated 10/29/20 @ 10:40 by Karrie Mcnair) household members: spouse and children housing: house number of children: 1 Smoking Status: Former smoker alcohol intake: never substance use type: does not use what type of physical activity do you participate in: walking frequency: daily do you feel safe at home: Yes HPI right shoulder Details: Parts of this documentation were recorded by a scribe, this documentation accurately reflects the service provided and the decisions made by me, Dr. Chris Johnson DO 12/24/20 0742. CHRISTIANO QUESADA is a 60 year old F here today for follow-up right shoulder injury previously seen by her physician nursing assistants teacher Deacon vela date of injury 10/13/2020 injury to right shoulder after rolling out of bed MRI demonstrates rotator cuff tear. Pain is located: anterior and deltoid into her forearm. Intermittent numbness, stiffness and tingling. Patient has been using icy-hot. Patient states she jammed her shoulder with her injury. Denies previous accidents and injures. Ortho Exam General General: Yes no acute distress and Yes well groomed Neurologic: Yes alert and Yes oriented x3 Psychologic: Yes reasonable and appropriate Right Shoulder Date of injury: 10/16/20 Testing: Positive TTP AC Joint SHOULDER: 70 degrees forward flexion Supplemental Info 12/09/2020 MRI right shoulder: Full-thickness tear supraspinatus and infraspinatus with mild atrophy of both tendinosis of biceps tendon AC joint arthrosis Coding Level of Care Code No Charge Diagnoses Biceps tendinopathy M67.921 Laterality: right Right rotator cuff tear S46.011D Rotator cuff tear extent: complete Rotator cuff tear trauma status: traumatic Encounter type: subsequent encounter Impingement syndrome, shoulder M75.41 Laterality: right Assessment and Plan Assessment and Plan (1) Biceps tendinopathy: Status: Acute Qualifiers: Laterality: right Qualified Code(s): M67.921 - Unspecified disorder of synovium and tendon, right upper arm (2) Right rotator cuff tear: Status: Acute Qualifiers: Rotator cuff tear extent: complete Rotator cuff tear trauma status: traumatic Encounter type: subsequent encounter Qualified Code(s): S46.011D - Strain of muscle(s) and tendon(s) of the rotator cuff of right shoulder, subsequent encounter (3) Impingement syndrome, shoulder: Status: Acute Qualifiers: Laterality: right Qualified Code(s): M75.41 - Impingement syndrome of right shoulder Plan - Dr. Chris Johnson DO: Personally reviewed the patient's medical history, medications, surgeries and recent exams if available. We discussed arthroscopic rotator cuff repair and the possibility that is a repairable. We discussed biceps tenotomy and the effects risk benefits of this and subacromial decompression. As she was not having any AC joint pain prior to this injury we will forego a distal clavicle excision. Explained with surgery, patient can have pain with her forearm, which will subside. Patient will be in a sling for six weeks. After six weeks patient will work with PT and get her arm moving. Patient will be working with a physical therapist in [place]. Patient would like to proceed jayce. Risks, benefits and alternatives of surgery reviewed including risk of bleeding, infection, nerve, artery and/or tissue damage continued pain or symptoms and expected post-operative course. Advised patient to d/c NSAIDs seven days before surgery. Explained and educated patient to keep her sugars down to help with healing post-op. All questions answered. Patient in agreement of plan. Follow up two weeks post-op or sooner if pain, swelling, numbness or associated symptoms, or concerns develop. 12/24/20 1341<Electronically signed by Chris Johnson DO>Date Chris Johnson DO I have re-examined the patient. There are no clinical changes since date of exam
[2021-01-09] MEDS: Cefazolin 2 GM in 0.9% Normal Saline 100 ML IV (07:53)
[2021-01-09] MEDS: Lidocaine 1% /Epi 1:100 (50ml) 50 ML VIAL (08:02)
[2021-01-09] MEDS: Epinephrine (1 mg/ml) 1 MG/ML VIAL (08:02)
--- NOTE | 2021-01-09 09:20 | OP.PCM_ITS ---
Report of Operation Date of Procedure: 01/09/21 Description of Surgical Findings:: Preoperative diagnosis: Right shoulder full- thickness supraspinatus infraspinatus rotator cuff tear biceps tendinopathy impingement Postoperative diagnosis: Full-thickness supraspinatus infraspinatus rotator cuff tear anterior and superior labral tearing biceps tendinopathy impingement Procedure: Arthroscopic arthroscopic rotator cuff repair with Arthrex speed bridge 4 anchor system, biceps tenotomy labral debridement subacromial decompression and acromioplasty Anesthesia: General with interscalane block EBL: 25 cc Complications none Indication for procedure: This is a 60-year-old female patient who had an injury in late September rolling out of her bed falling on the floor onto the right shoulder medially had pain inability to lift the arm did have MRI evidence of full- thickness rotator cuff tear with some atrophy as well as impingement from AC joint arthritis risks benefits and alternatives of the procedure were reviewed including risk of bleeding infection nerve artery tissue damage need for further surgery continued pain postoperative stiffness and need for postoperative physical therapy and continued pain and retear. Procedure: Patient was met in the preoperative holding area the operative extremity was identified by both the patient and the physician and was marked. Patient was met by anesthesia and brought back to the operating room on a wheeled cart. Patient was transferred to the operating table in the supine position. Anesthesia was started. Patient was then positioned in the beach chair configuration. Bony prominences were well-padded. The patient was prepped and draped in the usual sterile fashion. A timeout was called to ensure the proper patient procedure and extremity were being contemplated. Anatomic landmarks were palpated and marked with a marking pen. A 0.25% Marcaine with epinephrine was injected into the planned portal sites. An 11 blade scalpel was used to make a stab incision in the posterior lateral portal. Arthroscope was inserted into the glenohumeral space with ease. Inflow and outflow tubes were attached and arthroscopic visualization began. An anterior portal was established with an 18-gauge spinal needle. There was early cartilage wear of the glenoid there was tearing noted of the anterior and superior labrum as well as biceps tearing synovitis of the subscapularis but intact with the use of a shaver labral debridement and biceps tenotomy was performed with the help of an ArthroCare wand the rotator cuff was evaluated and was found to have a full- thickness tear of both supraspinatus and the infraspinatus. The axillary pouch was investigated and was free of loose bodies. The subscapularis was intact. The arthroscope was then repositioned into the subacromial space and a lateral portal was established. A subacromial decompression with an ArthroCare wand and shaver was performed, there was noted to be anterior spurring of the acromion which was burred to create a flat surface. Performing an anterior acromioplasty. [The bursal side of the rotator cuff was evaluated . Using standard speed bridge fashion 2 medial anchors were placed wedges of the fiber tapes were cut and for individual passes of the rotator cuff were performed then in standard fashion the posterior limb of each of these anchors were secured to a posterior lateral anchor and were tapped into place under tension this was repeated for the anterior 2 limbs. Excellent repair was achieved. The wound was thoroughly irrigated through the scope followed by a subacromial injection with 8 cc of 0.5% Marcaine plain. Suture portals were closed with 3-0 nylon art hroscopic stitches followed by Xeroform 4 x 4 ABD and a Ioban dressing. A abduction sling and pillow was placed. Anesthesia was reversed and patient tolerated the procedure well was and was transferred to the PACU. All counts were correct patient will follow-up in the office in 2 weeks . Patient may begin active elbow and wrist range of motion and pendulums of the shoulder but no active shoulder motion, dressing is to be left on for 48 hours before being changed daily after showering
--- NOTE | 2021-01-09 09:25 | EX.PCM.DISCH ---
Discharge Instructions Diet Discharge Diet: No restrictions Dressing / Incision Call your doctor if you observe: Shortness of breath and Chest pain Change Dressing in: 2 days Additional Dressing/Incision Instructions:: Leave the dressing on and intact for 48 hours. . Then may remove and shower with warm water and antibacterial soap. But do not submerge in tub for 3 weeks. Ice shoulder 15 min on and 15 mins off next 72 hrs. May remove sling for elbow range of motion and pendulum exercises only then replace sling. Absolutely no active shoulder motion. Do not lift push pull at all with operative extremity . Encourage finger and wrist range of motion. If any concerns call Dr. Johnson's office. Follow Up Care Please Follow Up With: Chris Johnson DO When: 2 weeks Test Results: Test results from this visit will be discussed in further detail at your follow-up appointment, if applicable. Discharge Plan Admission Attending Provider: Chris Johnson Primary Care Provider: Christelle Retana Discharge Orders/Prescriptions Prescriptions: New oxycodone 5 mg capsule 5 mg PO Q4H PRN (Reason: pain) 7 Days Qty: 50 RF: 0 Continued pantoprazole 40 mg tablet,delayed release (DR/EC) 40 mg PO BID RF: 0 furosemide 40 mg tablet 40 mg PO DAILY RF: 0 montelukast 10 mg tablet 10 mg PO QHS RF: 0 dicyclomine 10 mg capsule 10 mg PO Q6H PRN (Reason: ibs) RF: 0 paroxetine HCl 10 mg tablet 10 mg PO DAILY RF: 0 ibuprofen 800 mg tablet 800 mg PO TID PRN (Reason: pain/fever) RF: 0 pramipexole 1 mg tablet 1 mg PO QHS RF: 0 fluticasone propionate [Allergy Relief (fluticasone)] 50 mcg/actuation spray,suspension 1 spray INTRANASAL DAILY RF: 0 cholecalciferol (vitamin D3) 25 mcg (1,000 unit) capsule 25 mcg PO DAILY RF: 0 albuterol sulfate [Ventolin HFA] 90 mcg/actuation HFA aerosol inhaler 2 puff INHALATION Q4H PRN (Reason: breathing) RF: 0 cromolyn 4 % drops 1 drp OPHTHALMIC 6XD RF: 0 fexofenadine [Rubia Allergy] 60 mg tablet 60 mg PO BID PRN (Reason: seasonal allergies) RF: 0 ferrous sulfate 325 mg (65 mg iron) tablet 325 mg PO BID RF: 0 sucralfate [Carafate] 1 gram tablet 1 g PO QACHS Qty: 120 RF: 0 potassium chloride 20 mEq tablet,ER particles/crystals 20 tablet PO DAILY RF: 0 glipizide [Glucotrol] 10 mg Tablet 10 mg PO BID RF: 0 Referrals / Follow Up: Christelle Retana DO [Primary Care Provider] - Disposition Disposition (needs filled in before D/C Order can be placed): Home, Self Care
[2021-01-09 10:20] LABS: Bedside Glucose 136 mg/dL (70-110)
--- NOTE | 2021-01-09 11:16 | SUR.PHASEII ---
PT. WISHES TO GO HOME NOW. SHE DECLINES PAIN MEDICATION. PHARMACY HAS DELIVERED RX TO ROOM.
== END 2021-01-09 11:23 | disposition home or self-care (01) ==
LOC: SDC 05:51 → AC 05:51
PROVIDERS: Anesthesiology; PCP Family Medicine; Referring Provider Orthopaedic Surgery; Visit Provider Orthopaedic Surgery
PROC: (CPT 29827; principal; 2021-01-09 07:10)
DX: S46.011A Strain of muscle(s) and tendon(s) of the rotator cuff of right shoulder, initial encounter (principal); M75.41 Impingement syndrome of right shoulder; M67.921 Unspecified disorder of synovium and tendon, right upper arm; M19.011 Primary osteoarthritis, right shoulder; W06.XXXA Fall from bed, initial encounter; Y93.9 Activity, unspecified; Y92.9 Unspecified place or not applicable; Y99.9 Unspecified external cause status; R60.0 Localized edema; E11.9 Type 2 diabetes mellitus without complications; I10 Essential (primary) hypertension; M79.7 Fibromyalgia; J45.909 Unspecified asthma, uncomplicated; K21.9 Gastro-esophageal reflux disease without esophagitis; Z79.84 Long term (current) use of oral hypoglycemic drugs; Z79.899 Other long term (current) drug therapy; Z87.891 Personal history of nicotine dependence
CPT/HCPCS: 01630; 29826; 29827; 64415; 36415; 80048; 82962; 83036; 85027; 85610; 85730; J7120; J2405

== ENCOUNTER 2022-02-25 09:27 | Day surgery (SDC) | payer MEDICARE, SELFPAY ==
--- NOTE | 2022-02-22 11:57 | EKG12_ITS ---
Test Reason : PREOP Blood Pressure : / mmHG Vent. Rate : 083 BPM Atrial Rate : 083 BPM P-R Int : 152 ms QRS Dur : 086 ms QT Int : 368 ms P-R-T Axes : 015 054 023 degrees QTc Int : 432 ms Normal sinus rhythm Normal ECG Confirmed by AGATA BAKER, KOLTON ([id number]), editor trade journal KACI DAVID ([id number]) on 02/22/2022 2:14:11 PM Referred By: RAYMUNDO Confirmed By:KOLTON PARMAR MD
[2022-02-22 12:29] LABS: Hematocrit 35.5 % (37-47); Hemoglobin 11.2 g/dL (12.0-15.0); Mean Corp Hgb Conc 31.5 g/dL (32-36); Mean Corpuscular Hgb 32.6 pg (27.0-32.0); Mean Corpuscular Volume 103.2 fL (81-99); Mean Platelet Vol. 9.3 fl (6.2-12.0); Platelet Count 244 K/mm3 (150-450); RBC Distribution Width CV 16.8 % (11.6-14.6); RBC Distribution Width SD 63.7 fl (35.1-43.9); Red Blood Count 3.44 M/mm3 (4.2-5.4)
[2022-02-22 12:53] LABS: International Normalized Ratio 1.1; Prothrombin Time (Protime)PT. 13.9 SECONDS (11.7-14.9)
[2022-02-22 12:59] LABS: Hemoglobin A1c 6.7 % (3.8-5.6)
[2022-02-22 13:10] LABS: Anion Gap 6 (5-15); BUN 12 mg/dL (7-18); Calcium,Total 9.1 mg/dL (8.5-10.1); Chloride 103 mmol/L (98-107); EST Glomerular Filtration Rate 60 mL/min (>60); Est Glom Filt Rate - Afr Amer 72 mL/min (>60); Glucose 124 mg/dL (74-106); Potassium 4.3 mmol/L (3.5-5.1); Sodium Level 137 mmol/L (136-145)
[2022-02-25] VITALS (25 sets, daily range): BP systolic 129–182; BP diastolic 48–91; PULSE 79–100; RESP 16–19; TEMP 36.1–37.1; O2SAT 89–100; BMI 37.5
--- NOTE | 2022-02-25 09:34 | HP.PCM_ITS ---
History and Physical Date of Admission: 02/25/22 Intake Vital Signs ? 02/08/2209:38 Height 5 ft 3 in Weight: 214 lb BMI 37.9 BP 149/81 H Blood Pressure LocationB Rt brachial Position Sitting Respiration 18 Pulse 96 Pulse Source Monitor Temp 97.2 F L Temp Source Temporal Pulse Oximetry (%) 98 Oxygen Delivery Method room air Intake Visit Reasons:?Hernia Chief Complaint: Hernia Bindery Machine Operator Required: No Accompanied by: Allergies egg Allergy (Severe, Verified 02/08/22 09:39) Hives, Swelling, Vomitingacetaminophen [From Tylenol] Allergy (Mild, Verified 02/08/22 09:39) rashgabapentin Adverse Reaction (Severe, Verified 02/08/22 09:39) Hallucinations Medications albuterol sulfate 90 mcg/actuation aerosol inhaler (Ventolin HFA) 2 puff inhalation Q4H PRN breathing 11/14/19 [History Confirmed 02/08/22] cholecalciferol (vitamin D3) 25 mcg (1,000 unit) capsule 25 mcg PO DAILY 11/14/19 [History Confirmed 02/08/22] cromolyn 4 % eye drops 1 drp ophthalmic (eye) 6XD 11/14/19 [History Confirmed 02/08/22] dicyclomine 10 mg capsule 10 mg PO Q6H PRN ibs 11/14/19 [History Confirmed 02/08/22] ferrous sulfate 325 mg (65 mg iron) tablet 325 mg PO BID 11/14/19 [History Confirmed 02/08/22] fexofenadine 60 mg tablet (Rubia Allergy) 60 mg PO BID PRN seasonal allergies 11/14/19 [History Confirmed 02/08/22] fluticasone propionate 50 mcg/actuation nasal spray,suspension (Allergy Relief (fluticasone)) 1 spray intranasal DAILY 11/14/19 [History Confirmed 02/08/22] furosemide 40 mg tablet 40 mg PO DAILY 11/14/19 [History Confirmed 02/08/22] ibuprofen 800 mg tablet 800 mg PO TID PRN pain/fever 11/14/19 [History Confirmed 02/08/22] montelukast 10 mg tablet (Singulair) 10 mg PO QHS 11/14/19 [History Confirmed 02/08/22] pantoprazole 40 mg tablet,delayed release 40 mg PO DAILY 11/14/19 [History Confirmed 02/08/22] paroxetine HCl 10 mg tablet 10 mg PO QHS 11/14/19 [History Confirmed 02/08/22] pramipexole 1 mg tablet 1 mg PO QHS 11/14/19 [History Confirmed 02/08/22] sucralfate 1 gram tablet (Carafate) 1 g PO QACHS #120 tabs 06/05/20 [Rx Confirmed 02/08/22] potassium chloride 20 mEq tablet,extended release(part/cryst) 20 meq PO DAILY 10/29/20 [History Confirmed 02/08/22] glipizide 10 mg tablet (Glucotrol) 10 mg PO BID 01/05/21 [History Confirmed 02/08/22] cyclobenzaprine 10 mg tablet 10 mg PO TID PRN muscle spasm #60 tabs 04/01/21 [Rx Confirmed 02/08/22] amitriptyline 25 mg tablet 25 mg PO QHS 11/04/21 [History Confirmed 02/08/22] ascorbic acid (vitamin C) 500 mg tablet (Vitamin C) 500 mg PO DAILY 11/04/21 [History Confirmed 02/08/22] levocetirizine 5 mg tablet 5 mg PO DAILY 11/04/21 [History Confirmed 02/08/22] azithromycin 250 mg tablet See Rx Instructions PO .COMPLEX #6 tabs 11/09/21 [Rx Confirmed 02/08/22] dextromethorphan-guaifenesin 20 mg-400 mg/5 mL oral liquid 5 ml PO Q6H PRN cough #120 mL 11/09/21 [Rx Confirmed 02/08/22] PFSH Medical History? Acute cholecystitis Anemia Arthritis Asthma Bilateral edema of lower extremity Carpal tunnel syndrome on right Chronic cough CPAP (continuous positive airway pressure) dependence DDD (degenerative disc disease) Depression Diabetes Dietary restriction Essential hypertension Fibromyalgia Former smoker Gastric reflux GERD (gastroesophageal reflux disease) History of edema History of edema Low iron Restless legs Sleep apnea Syncope Wears dentures Surgical History? history lap will/ERCP (~05/26/20) History of arthroscopic surgery of elbow History of foot surgery Hx laparoscopic cholecystectomy Hx of colonoscopy Hx of shoulder surgery Family History? Mother Heart disease Hypertension Diabetes Kidney diseaseAunt CancerSister Arthritis Social History? household members:? spouse and children housing:? house number of children:? 1 Smoking Status:? Former smoker alcohol intake:? never substance use type:? does not use what type of physical activity do you participate in:? walking frequency:? daily do you feel safe at home:? Yes HPI HPI HPI: Patient is a 61-year-old female with a ventral hernia.? She was scheduled for surgery about a month ago but had to cancel as her fell and required care.? Patient notes that the hernia has grown since her last visit. It is uncomfortable not able to be pushed back in. ROS General General: No weight change, appetite, fatigue, colon cancer, breast cancer or weakness HEENT HEENT: No difficulty swallowing, eye injury, eye surgery, swollen glands or hoarseness Endo Endocrine: Yes diabetes mellitus; No thyroid disease, thyroid cancer, Hair loss, heat intolerance or cold intolerance Skin Skin: No rash or changing moles Breast Breast: No left breast lump, right breast lump, nipple discharge, breast pain, abnormal mammogram, abnormal US or breast enlargement Musc Musculoskeletal: Yes arthritis; No back problems, rheumatoid arthritis, gout or joint pain Cardio Cardiovascular: No murmur, pacemaker, heart disease, atrial fibrillation, high blood pressure, heart attack, heart stent, palpitations, shortness of breat with exertion or chest pain Psych Psychiatric: No depression, anxiety or hearing voices Resp Respiratory: No shortness of breath, Yes sleep apnea, No cough, No COPD, No asthma, No emphysema and No wheezing Gastro Gastrointestinal: Yes abdominal pain, Yes nausea or vomiting, Yes diarrhea, No constipation, No blood in stool, Yes acid reflux, No hemorrhoids, No ulcers, No gallbladder problem and No black,tarry stools Remy Hematologic: No blood thinners, No blood disorders, No bleeding, No anemia and No blood clots Neuro Neurologic: No system reviewed and no additional complaints, except as documented, No as per HPI, No abnormal gait, No abnormal hearing, No abnormal movements, No abnormal speech, No behavioral changes, No burning sensations, No confusion, No convulsions, No disequilibrium, No dizziness, No localized weakness, No frequent falls, No headache(s), No lack of coordination, No loss of vision, No memory loss, Yes numbness, No other visual disturbances, No radicular pain, No restless legs, No sensory deficit, No syncope, Yes tingling, No tremor(s), No weakness and No other Exam Const General: cooperative Orientation: alert and oriented x3 HENMT Head: normal to inspection Neck Neck: normal visual inspection and full ROM Chest Chest palpation & inspection: normal inspection of the chest Resp Effort & Inspection: normal respiratory effort Auscultation: clear to auscultation bilaterally Cardio Rate: regular rate Rhythm: regular rhythm GI Inspection: non-distended Palpation: soft, hernia ventral and nontender Skin General: no rashes or lesions noted Neuro General: patient alert and patient oriented x3 Extrem General: full ROM Psych Appearance: grossly normal Mental Status: mental status grossly normal Assessment and Plan Assessment and Plan (1) Incisional hernia: ?Status:?Acute ?Qualifiers: ?Obstruction and gangrene presence:?without obstruction or gangrene? Qualified Code(s):?K43.2 - Incisional hernia without obstruction or gangrene ?Plan: Patient has an incisional hernia from her gallbladder incision.? I was not able to reduce this.? I discussed robotic assisted laparoscopic ventral hernia repair with mesh.? I also discussed the possibility of having to perform a hybrid or open approach.? I discussed the risks including but limited to bleeding, infection, injury to underlying organs, seroma or hematoma formation, recurrence of hernia.? Patient understands all of the risks and is willing to proceed with hernia repair Pancho Weinberg MD Pager: [facility] [place] [facility] [address] [place] [address], [address] [place] [address] Office: I have re-examined the patient. There are no clinical changes since date of exam.
[2022-02-25] MEDS: Lactated Ringers 1,000 ML 15 ML IV ×2 (09:47→12:37)
[2022-02-25] MEDS: Cefazolin 2 GM in 0.9% Normal Saline 100 ML IV (10:11)
[2022-02-25 11:25] LABS: Bedside Glucose 125 mg/dL (74-106)
--- NOTE | 2022-02-25 12:13 | OP.PCM_ITS ---
Report of Operation Date of Procedure: 02/25/22 Pre-Operative Diagnosis: Incisional ventral hernia Post-Operative Diagnosis: 1. Incisional ventral hernia 2. Umbilical hernia Surgery/Procedure Performed:: 1. Robotic assisted laparoscopic incisional ventral hernia repair with mesh 2. Robotic assisted laparoscopic umbilical hernia repair with mesh Description of Procedure: Patient was brought back to the operating room and general anesthesia was induced. The abdomen was prepped and draped in usual sterile fashion. An incision was made in the left upper quadrant and a Veress needle was placed into the abdomen and a drop test was performed. The abdomen was then insufflated 15 mmHg. Veress needle was then removed and a port was placed. Next the camera was placed into the abdomen and there were no injuries from entry. Under direct visualization a lateral and left lower quadrant port were placed. The robot was then docked. The hernia contents were reduced and the adhesions were taken down with electrocautery. Next an incision was made in the peritoneum and dissection was carried medially until the hernia was encountered. There was also a small umbilical hernia that was encountered. The hernia sac was dissected free from both of these defects and then the peritoneal dissection was carried laterally. Next the umbilical defect was closed using a #1 strata fix suture in a running fashion going over the defect twice. The intra-abdominal pressure was taken down to 8 mmHg and then the incisional defect was closed using a #1 strata fix suture in 2 layers. Next a 10 x [address] mesh was placed into the abdomen and sutured to the anterior abdominal wall covering both defects. The mesh was sutured to the anterior abdominal wall using 2-0V lock suture circumferentially. Next the peritoneum was reapproximated completely covering the mesh. This was done using a 3-0V lock suture. The hernia sac was incorporated into the closure of the peritoneum. Next the robot was undocked and the ports removed and the area was allowed to desufflate from the abdomen. The incisions were injected with local anesthetic and closed with interrupted 4- 0 Monocryl suture and Steri-Strips and bandages. Patient was awoken and taken to PACU stable condition and tolerated the procedure well. Grafts/Implants Used: Ventralight ST mesh Admit VTE Documentation VTE Mechan Device Prophylaxis: SCD's
--- NOTE | 2022-02-25 12:27 | DCINST_ITS ---
Discharge Instructions Procedure Hernia Diet Discharge Diet: Light diet - advance as tolerated Activity Discharge Activity: May Not Drive (for 2-3 days or while taking narcotic pain meds.) and May Shower (with the bandage in place 1-2 days after surgery.) Lifting Restrictions: 20 pounds for 6 weeks. Additional Activity Instructions:: Climbing stairs is fine, walking is encouraged. Sitting in bed may be uncomfortable. Sitting up using your lateral muscles (sitting up sideways) is usually more comfortable. Do not drive, work heavy equipment of sign legal documents for 24 hours. Pain medications may cause nausea, you should typically eat light foods as you take your pain medications. Pain medications may also cause constipation. If you have difficulty with this, discuss with your doctor. Dressing / Incision Call your doctor if your incision/area has: Continuous Slow Oozing, Sudden Increased Bleeding, Increased Pain/ Swelling, Increased Redness, Foul Smelling Discharge and Swelling at the incision site Call your doctor if you observe: Fever of 101 or Higher and Inability to urinate Suture Line Care: Avoid Pulling/Pushing and Avoid Pinching/Bending Remove Dressing in: 3 days (Remove clear bandages in 2 days, remove Steri-Strips in 7 to 10 days.) Cleanse incision/area with: Soap & Water Follow Up Care Please Follow Up With: Pancho Weinberg MD When: Please call to schedule 2 week follow up appointment. [phone] Test Results: Test results from this visit will be discussed in further detail at your follow- up appointment, if applicable. Discharge Plan Admission Attending Provider: Pancho Weinberg Primary Care Provider: Christelle Retana Instructions Additional Instructions / Restrictions: 600 mg ibuprofen every 4 hours as needed for pain Discharge Orders/Prescriptions Prescriptions: New oxycodone 5 mg tablet 5 - 10 mg PO Q4H PRN (Reason: pain) 5 Days Qty: 30 0RF No Action pantoprazole 40 mg tablet,delayed release (DR/EC) 40 mg PO DAILY furosemide 40 mg tablet 40 mg PO DAILY montelukast [Singulair] 10 mg tablet 10 mg PO QHS dicyclomine 10 mg capsule 10 mg PO Q6H PRN (Reason: ibs) paroxetine HCl 10 mg tablet 10 mg PO QHS ibuprofen 800 mg tablet 800 mg PO TID PRN (Reason: pain/fever) pramipexole 1 mg tablet 1 mg PO QHS fluticasone propionate [Allergy Relief (fluticasone)] 50 mcg/actuation spray,suspension 1 spray INTRANASAL DAILY Rx Instructions: administer into each nostril cholecalciferol (vitamin D3) 25 mcg (1,000 unit) capsule 25 mcg PO DAILY albuterol sulfate [Ventolin HFA] 90 mcg/actuation HFA aerosol inhaler 2 puff INHALATION Q4H PRN (Reason: breathing) cromolyn 4 % drops 1 drp OPHTHALMIC 6XD fexofenadine [Rubia Allergy] 60 mg tablet 60 mg PO BID PRN (Reason: seasonal allergies) ferrous sulfate 325 mg (65 mg iron) tablet 325 mg PO BID sucralfate [Carafate] 1 gram tablet 1 g PO QACHS Qty: 120 0RF potassium chloride 20 mEq tablet,ER particles/crystals 20 meq PO DAILY cyclobenzaprine 10 mg tablet 10 mg PO TID PRN (Reason: muscle spasm) Qty: 60 0RF azithromycin 250 mg tablet See Rx Instructions PO .COMPLEX Qty: 6 0RF Rx Instructions: take 500 mg today (day 1), then 250 mg for 4 days (days 2-5) PO dextromethorphan-guaifenesin 20-400 mg/5 mL liquid 5 ml PO Q6H PRN (Reason: cough) Qty: 120 0RF glipizide [Glucotrol] 10 mg Tablet 10 mg PO BID amitriptyline 25 mg tablet 25 mg PO QHS Label Comments: TAKE 1 TABLET BY MOUTH DAILY AT BEDTIME ascorbic acid (vitamin C) [Vitamin C] 500 mg Tablet 500 mg PO DAILY levocetirizine 5 mg tablet 5 mg PO DAILY Other Ambulatory Orders: Partial Thromboplast Time (Routine) Timeframe: 20211104 Facility: [facility] - Location: Laboratory Ordered By: Dr. Arsenio Camarillo Hemoglobin A1c (Routine) Timeframe: 20211104 Facility: [facility] - Location: Laboratory Ordered By: Dr. Arsenio Camarillo Basic Metabolic Profile (BMP) (Routine) Timeframe: 20211104 Facility: [facility] - Location: Laboratory Ordered By: Dr. Arsenio Camarillo CBC-Complete Blood Cnt No Diff (Routine) Timeframe: 20211104 Facility: [facility] - Location: Laboratory Ordered By: Dr. Arsenio Camarillo Prothrombin Time w/INR (Routine) Timeframe: 20211104 Facility: [facility] - Location: Laboratory Ordered By: Dr. Arsenio Camarillo Referrals / Follow Up: Christelle Retana DO [Primary Care Provider] - Disposition Disposition (needs filled in before D/C Order can be placed): Home, Self Care
[2022-02-25] MEDS: Ipratropium/Albuterol Sulfate 3 ML AMPUL.NEB INHALATION (13:16)
[2022-02-25 13:40] LABS: Bedside Glucose 170 mg/dL (74-106)
== END 2022-02-25 18:30 | disposition home or self-care (01) ==
LOC: SDC 09:28 → AC 09:29
PROVIDERS: Anesthesiology; PCP Family Medicine; Visit Provider Surgery
PROC: (CPT 49654; principal; 2022-02-25 10:35)
DX: K43.2 Incisional hernia without obstruction or gangrene (principal); E11.9 Type 2 diabetes mellitus without complications; K42.9 Umbilical hernia without obstruction or gangrene; G47.30 Sleep apnea, unspecified; J45.909 Unspecified asthma, uncomplicated; K21.9 Gastro-esophageal reflux disease without esophagitis; E61.1 Iron deficiency; G25.81 Restless legs syndrome; R10.9 Unspecified abdominal pain; Z87.891 Personal history of nicotine dependence; Z79.899 Other long term (current) drug therapy; Z79.84 Long term (current) use of oral hypoglycemic drugs
CPT/HCPCS: 49654; 49652; S2900; 00832; 36415; 80048; 82962; 83036; 85027; 85610; 93005; 94640; J7120; C1781; J2405

== ENCOUNTER → 2022-03-26 | Outpatient (CLI) | payer MEDICARE, SELFPAY ==
--- NOTE | 2022-03-26 14:04 | CT_ITS ---
INDICATION: Ventral hernia. EXAMINATION: CT ABDOMEN AND PELVIS WITH CONTRAST - CT Abdomen And Pelvis W/ Contrast Injection TECHNIQUE: Helically acquired images were obtained of the abdomen and pelvis following IV contrast. A radiation dose optimization technique was used for this scan. IV Contrast dosage and agent: 100 mL of Isovue-300 Oral contrast: With COMPARISON: None FINDINGS: LOWER CHEST: Lung bases are clear. No cardiomegaly or pericardial effusion. LIVER: Homogeneous. No focal mass. GALLBLADDER AND BILIARY TREE: The gallbladder is nonvisualized. No evidence of intra or extrahepatic biliary ductal dilatation or choledocholithiasis. PANCREAS: No focal cystic or solid mass. SPLEEN: Normal size without focal cystic or solid mass. ADRENAL GLANDS: No nodules. KIDNEYS AND URETERS: Normal renal size and position. No hydronephrosis. Normal visualized ureters. PERITONEUM: No ascites or free air. No other fluid collection. BOWEL: Normal stomach. Normal small bowel. Scattered sigmoid diverticuli without acute inflammatory change. The proximal colon is unremarkable. Normal appendix. LYMPH NODES: No enlarged mesenteric or retroperitoneal lymph nodes. VESSELS: Atherosclerotic changes of the abdominal aorta without aneurysm or dissection. Normal IVC. URINARY BLADDER: Unremarkable. REPRODUCTIVE ORGANS: Normal uterus and adnexa. ABDOMINAL WALL: There is fluid between the abdominal wall musculature and anterior peritoneal surface. This is above the level of the umbilicus and measures 1.7 x 9.3 x 11.9 cm in size. Superiorly it communicates with a collection of fluid in the midline subcutaneous fat. Along its left upper margin there is an irregular area of fat and fluid which extends into the peritoneal cavity measuring 3.9 x 3.0 x 3.3 cm. BONES: No lytic or blastic abnormality. CT/Abdomen/Pelvis WITH Contrast IMPRESSION: 1. Extraperitoneal fluid in the supraumbilical anterior abdominal wall which appears to extend outward into the subcutaneous fat. There is an associated mixed fluid and fat density mass extending off its left lateral margin into the abdominal cavity. 2. Scattered colonic diverticuli without inflammatory change. 3. Atherosclerotic changes of the aorta without aneurysm. 4. Otherwise normal CT of the abdomen and pelvis. Electronically Signed: Kadeem Desai DO at 23:19 EDT Reading Location ID and State: [address] [place] [address] Tel [phone], Service support ,
== END | disposition home or self-care (01) ==
LOC: CT 14:04
PROVIDERS: PCP Family Medicine; Referring Provider Surgery; Visit Provider Surgery
DX: K43.9 Ventral hernia without obstruction or gangrene (principal)
CPT/HCPCS: 74177; Q9967

== ENCOUNTER 2022-04-02 08:56 | Outpatient (CLI) | payer MEDICARE, SELFPAY ==
[2022-04-02] VITALS (9 sets, daily range): BP systolic 110–128; BP diastolic 61–73; PULSE 80–84; RESP 13–17; TEMP 36.3; O2SAT 93–98; BMI 31.7
--- NOTE | 2022-04-02 09:12 | CT_ITS ---
PROCEDURE: CT DIRECTED ABSCESS DRAINAGE, PERITONEAL DATE OF EXAMINATION: 04/02/2022. INDICATION: Female, 61 years old. Right anterior abdominal wall fluid collection. PHYSICIAN: Nba Molina M.D. CONSENT: Written informed consent was obtained having explained the risks, benefits and alternatives in detail with the patient who accepted the risks and agreed to proceed. Laboratory review and clinical assessment was performed. CONSCIOUS SEDATION PROTOCOL: The Drugs used were: 2 mg Versed, IV., and 50 mcg Fentanyl, IV. The sedation time was: 15 minutes. Conscious sedation was started at 10:00 AM and terminated at 10:15 AM. The conscious sedation protocol was independently monitored. RADIATION DOSAGE (If Supplied By Facility): CTDIvol = ( 29 ) mGy, DLP = ( 1643.29 ) mGycm TECHNIQUE: CT sections were made through the abdomen and pelvis revealing an abscess in the periumbilical region. The skin surface was prepped and draped in a sterile fashion. Puncture of this collection was performed initially with a 8 [place] [employer] catheter and fluid was aspirated. Drainage catheter was then inserted into the collection and formed into position. Additional fluid was aspirated for a total of approximately 70 cc of cloudy red fluid. The catheter was sutured into position to allow for continued drainage. Followup CT sections reveals good position of the catheter. CT/CT Guidance Abscess Drg w/Cath IMPRESSION: 1. CT directed drainage of a fluid collection using CT image guidance and image documentation as described. 2. Conscious Sedation protocol utilized with independent monitoring Electronically Signed: Nba Molina MD at 11:10 EST ,
[2022-04-02 09:14] LABS: Platelet Count 252 K/mm3 (150-450)
[2022-04-02 09:24] LABS: International Normalized Ratio 1.1; Prothrombin Time (Protime)PT. 14.3 SECONDS (11.7-14.9)
[2022-04-02 09:25] LABS: Partial Thromboplast Time 27.9 Seconds (24.1-36.2)
[2022-04-02] MEDS: Midazolam 2 MG/2 ML Syringe IV (10:00)
[2022-04-02] MEDS: fentaNYL 100 MCG/2 ML Ampul IV (10:00)
[2022-04-02] MEDS: Lidocaine 2% (20 ml mdv) 20 ML Vial INFILT (10:12)
== END 2022-04-02 23:59 | disposition home or self-care (01) ==
PROVIDERS: PCP Family Medicine; Referring Provider Surgery; Visit Provider Surgery
DX: L76.34 Postprocedural seroma of skin and subcutaneous tissue following other procedure (principal); E11.9 Type 2 diabetes mellitus without complications; Y83.8 Other surgical procedures as the cause of abnormal reaction of the patient, or of later complication, without mention of misadventure at the time of the procedure; I10 Essential (primary) hypertension; Z79.899 Other long term (current) drug therapy; Z87.891 Personal history of nicotine dependence
CPT/HCPCS: 10030; 36415; 75989; 85049; 85610; 85730; 87070; 87075; 87205; 99156; J7050; A4216

== ENCOUNTER 2023-07-19 11:15 | Outpatient (CLI) | payer MEDICARE, SELFPAY | END 2023-07-19 11:16 | disposition home or self-care (01) | PROVIDERS: PCP Family Medicine; Referring Provider Internal Medicine Hematology & Oncology; Visit Provider Internal Medicine Hematology & Oncology | DX: D64.81 Anemia due to antineoplastic chemotherapy (principal) | CPT/HCPCS: 86850; 86900; 86901; 86920; 86922 ==

== ENCOUNTER 2023-10-28 11:04 | Inpatient (IN) | payer MEDICARE, SELFPAY ==
[2023-10-28] VITALS (9 sets, daily range): BP systolic 101–134; BP diastolic 53–86; PULSE 89–117; RESP 16–22; TEMP 36.6–37.2; O2SAT 90–98; BMI 30.9; BMI 38.5
--- NOTE | 2023-10-28 11:22 | EX.ED.DYSGE1 ---
HPI History of Present Illness Chief Complaint: General Illness Detail of Chief Complaint: Cough Informant: patient Narrative Narrative: Patient presents with cough and some shortness of breath. Patient states that she was seen by nurse practitioner for Dr. James Grace and she had vital signs that were abnormal and was referred to the emergency department. She was told her pulse oximeter was low. Patient has been bringing up some yellow phlegm since yesterday. He denies fevers or chills or sweats. She denies chest pain. She does have history of bone cancer and her last chemo was about 12 days ago. [facility] Medical History Acute cholecystitis Anemia Arthritis Asthma Bilateral edema of lower extremity Carpal tunnel syndrome on right Chronic cough CPAP (continuous positive airway pressure) dependence DDD (degenerative disc disease) Depression Diabetes Dietary restriction Essential hypertension Fibromyalgia Former smoker Gastric reflux GERD (gastroesophageal reflux disease) History of edema History of edema Incisional hernia Low iron Restless legs Sleep apnea Syncope Wears dentures Home Medications ?Medication ?Instructions ?Recorded ?Last Taken ?Type albuterol sulfate 90 mcg/actuation 2 puff inhalation Q4H PRN breathing 11/14/19 Unknown History aerosol inhaler (Ventolin HFA) cholecalciferol (vitamin D3) 25 25 mcg PO DAILY 11/14/19 05/25/20 History mcg (1,000 unit) capsule cromolyn 4 % eye drops 1 drp ophthalmic (eye) 6XD 11/14/19 05/25/20 History dicyclomine 10 mg capsule 10 mg PO Q6H PRN ibs 11/14/19 Unknown History ferrous sulfate 325 mg (65 mg 325 mg PO BID 11/14/19 05/25/20 History iron) tablet fexofenadine 60 mg tablet (Rubia 60 mg PO BID PRN seasonal allergies 11/14/19 Unknown History Allergy) fluticasone propionate 50 1 spray intranasal DAILY 11/14/19 05/25/20 History mcg/actuation nasal spray,suspension (Allergy Relief (fluticasone)) furosemide 40 mg tablet 40 mg PO DAILY 11/14/19 05/25/20 History ibuprofen 800 mg tablet 800 mg PO TID PRN pain/fever 11/14/19 Unknown History montelukast 10 mg tablet 10 mg PO QHS 11/14/19 05/24/20 History (Singulair) pantoprazole 40 mg tablet,delayed 40 mg PO DAILY 11/14/19 01/09/21 05:30 History release paroxetine HCl 10 mg tablet 10 mg PO QHS 11/14/19 05/25/20 History pramipexole 1 mg tablet 1 mg PO QHS 11/14/19 05/24/20 History sucralfate 1 gram tablet (Carafate) 1 g PO QACHS #120 tabs 06/05/20 Unknown Rx glipizide 10 mg tablet (Glucotrol) 10 mg PO BID 01/05/21 02/25/22 History cyclobenzaprine 10 mg tablet 10 mg PO TID PRN muscle spasm #60 04/01/21 Unknown Rx tabs amitriptyline 25 mg tablet 25 mg PO QHS 11/04/21 Unknown History ascorbic acid (vitamin C) 500 mg 500 mg PO DAILY 11/04/21 Unknown History tablet (Vitamin C) levocetirizine 5 mg tablet 5 mg PO DAILY 11/04/21 Unknown History dextromethorphan-guaifenesin 20 5 ml PO Q6H PRN cough #120 mL 11/09/21 Unknown Rx mg-400 mg/5 mL oral liquid Allergy/AdvReac Type Severity Reaction Status Date / Time egg Allergy Severe Hives, Verified 04/12/22 10:01 Swelling, Vomiting acetaminophen (From Tylenol) Allergy Mild rash Verified 04/12/22 10:01 gabapentin AdvReac Severe Hallucinati Verified 04/12/22 10:01 ons Family History Mother Heart disease Hypertension Diabetes Kidney disease Aunt Cancer Sister Arthritis Surgical History history lap will/ERCP (~05/26/20) History of arthroscopic surgery of elbow History of foot surgery History of ventral hernia repair Hx laparoscopic cholecystectomy Hx of colonoscopy Hx of shoulder surgery Social History household members: spouse and children housing: house number of children: 1 Smoking Status: Current some day smoker tobacco type: cigarettes alcohol intake: never substance use type: does not use what type of physical activity do you participate in: walking frequency: daily do you feel safe at home: Yes ROS ROS ED Review of Systems ROS Unobtainable: other Constitutional Constitutional ED: Reports lethargy; Denies chills, fever(s), sweats or weight loss Eyes Eyes: Denies blurry vision, change in vision or diplopia ENT ENT ED: Denies rhinorrhea or sore throat Cardiovascular Cardiovascular: Denies chest pain, orthopnea or racing heartbeat Respiratory/Chest Respiratory/Chest: Reports cough, dyspnea on exertion and sputum; Denies dyspnea or orthopnea Gastrointestinal Gastrointestinal: Denies abdominal pain, diarrhea, nausea or vomiting Genitourinary Genitourinary ED: Denies dysuria, hematuria or urinary frequency Musculoskeletal Musculoskeletal: Denies arthralgias, back pain, myalgias or neck pain Integumentary Denies abscess, Abrasions or rash Neurologic Neurologic: Denies headache(s) or weakness Psychiatric Psychiatric: Denies anxiety, depression or suicidal thoughts Endocrine Endocrinology: Denies polydipsia, polyphagia or polyuria Hematologic/Lymphatic Hematologic/Lymphatic: Denies easy bleeding, easy bruising or lymphadenopathy Allergic/Immunologic Allergic/Immunologic ED: Denies mouth swelling, tongue swelling or urticaria EXAM Physical Exam Const Vital Signs: 10/28/23 11:05 10/28/23 11:20 10/28/23 11:38 Temperature 98.2 F Temperature Source Temporal Pulse Rate 117 H 114 H Respiratory Rate 22 H 20 H Respiratory Effort Respiratory Pattern Blood Pressure 129/60 H Blood Pressure Mean 83 Pulse Ox 98 90 Oxygen Delivery Method Room Air Nasal Cannula Oxygen Flow Rate (L/min) 3 10/28/23 11:52 10/28/23 13:05 Temperature Temperature Source Pulse Rate 102 H Respiratory Rate 16 Respiratory Effort Normal Short of Breath Respiratory Pattern Normal Blood Pressure 102/53 L Blood Pressure Mean 69 Pulse Ox 92 Oxygen Delivery Method Nasal Cannula Oxygen Flow Rate (L/min) 3 Positive well nourished and well developed General Appearance ED: well developed and NAD HEENT Reports TM's clear and moist mucous membranes normocephalic and atraumatic; Negative for trauma or tenderness Tympanic Membrane ED: Yes TM's clear Eyes PERRL and EOMs intact bilaterally General Eye ED: Negative for pale conjunctiva or scleral icterus Neck no lymphadenopathy, supple and no JVD General: Negative for tenderness Chest Wall inspection of chest normal and palpation of chest normal Chest: Negative for tenderness Resp normal respiratory effort and clear to auscultation bilaterally Resp Narrative: Few rhonchi and rales in the bases. Effort and Inspection: Negative for respiratory distress or pain with movement Auscultation: Negative for rhonchi, wheezes or diminished lung sounds Cardio regular rate, regular rhythm, S1 normal heart sound, S2 normal heart sound and no murmurs Peripheral Pulses: pulses 2+ throughout GI normal to inspection, nondistended, normoactive bowel sounds, soft to palpation, non-tender, non-distended and no masses Back/Spine no CVA tenderness and no thoracic nor lumbar tenderness Extremity normal to inspection Extremity Narrative: +2 edema both lower extremities. General Extremety ED: Yes edema General Extremity: edema Neuro oriented x3, CN's II-XII intact bilaterally, no sensory deficits noted and gait normal Sensorium / Orientation: awake, alert, oriented to person, oriented to place and oriented to time Motor Exam: strength 5/5 throughout and strength abnormal Psych mental status grossly normal Skin no rashes or lesions noted and no wounds MDM MDM MDM Narrative Medical decision making narrative: Patient presents with cough and shortness of breath. She has history of cancer and her last chemo was about a week ago. IV line established. Blood cultures ordered. CBC with differential white count 10.8 with hemoglobin of 10.8 and platelet count of 167. Chemistries unremarkable. D-dimer was elevated 1.10. Troponin normal at 7. Lactate normal at 1.4. CT of the chest was obtained and showed bilateral infiltrates but no evidence of PE. We did obtain blood cultures and she was started on Rocephin and Zithromax IV. She did receive a DuoNeb aerosol. She was placed on 2 L nasal cannula O2 as her O2 sat with a good waveform down into the mid 80s at times. Discussed case with patient and results. Discussed with hospitalist will evaluate patient for admission Lab Data Attestation: I reviewed the patient's lab results. Labs: Laboratory Results - last 24 hr 10/28/23 11:30 WBC 10.8 RBC 3.44 L Hgb 10.8 L Hct 33.7 L MCV 98.0 MCH 31.4 MCHC 32.0 RDW Std Deviation 56.6 H RDW Coeff of Esteban 15.9 H Plt Count 167 MPV 10.3 Immature Gran % (Auto) 0.600 Neut % (Auto) 83.0 H Lymph % (Auto) 5.5 L Weber % (Auto) 10.1 H Eos % (Auto) 0.4 Baso % (Auto) 0.4 Absolute Neuts (auto) 9.0 H Absolute Lymphs (auto) 0.60 L Nucleated RBC % 0 D-Dimer Quant (PE/DVT) 1.10 H* Sodium 132 L Potassium 3.6 Chloride 99 Carbon Dioxide 26.0 Anion Gap 7 BUN 16 Creatinine 1.16 H Estim Creat Clear Calc 48.88 Est GFR (MDRD) Af Amer 61 Est GFR (MDRD) Non-Af 50 L BUN/Creatinine Ratio 13.8 Glucose 155 H Lactic Acid 1.4 Calcium 8.7 Troponin I High Sens 7 B-Natriuretic Peptide 67.5 Radiography Diagnostic Testing: Clinical Impression(s) from Imaging Studies Chest CTA 10/28/23 12:17 IMPRESSION: No evidence of pulmonary emboli. Bilateral pulmonary infiltrates as described. Radiographic follow-up recommended. Electronically Signed: Nba Molina MD at 13:30 EDT , EKG Initial EKG: Attestation: I personally reviewed and interpreted this EKG as follows: Comments: Sinus rhythm with rate of 106 bpm with no acute ST segment changes Discharge Plan Dx/Rx/DC Orders Clinical Impression: Pneumonia, Hypoxemia, History of diabetes mellitus Disposition Disposition: Acute Care [facility]
[2023-10-28] MEDS: Ipratropium/Albuterol Sulfate 3 ML AMPUL.NEB INHALATION (11:27)
--- NOTE | 2023-10-28 11:31 | EKG12_ITS ---
Test Reason : GENERAL Blood Pressure : / mmHG Vent. Rate : 106 BPM Atrial Rate : 106 BPM P-R Int : 150 ms QRS Dur : 082 ms QT Int : 322 ms P-R-T Axes : 021 071 025 degrees QTc Int : 427 ms Sinus tachycardia Otherwise normal ECG Confirmed by AGATA BAKER, KOLTON ([id number]), development editor KYRA SEBASTIAN ([id number]) on 10/31/2023 8:41:39 AM Referred By: Confirmed By:KOLTON PARMAR MD
[2023-10-28 11:45] LABS: Basophil# 0.04 X10^3/uL; Basophil% 0.4 % (0-1); Eosinophil# 0.04 X10^3/uL; Eosinophils% 0.4 % (0-5); Hematocrit 33.7 % (37-47); Hemoglobin 10.8 g/dL (12.0-15.0); Lymphocyte % 5.5 % (19-41); Mean Corpuscular Hgb 31.4 pg (27.0-32.0); Mean Platelet Vol. 10.3 fl (6.2-12.0); Monocyte% 10.1 % (0-10); NRBC Flagged by Analyzer 0 % (0-5); Neutrophil # 8.99 X10^3/uL (2.7-7.7); POSITIVE DIFFERENTIAL YES; Platelet Count 167 K/mm3 (150-450); RBC Distribution Width CV 15.9 % (11.6-14.6); RBC Distribution Width SD 56.6 fl (35.1-43.9); Red Blood Count 3.44 M/mm3 (4.2-5.4); White Blood Count 10.8 K/mm3 (4.4-11.0)
--- NOTE | 2023-10-28 11:56 | ED.RN ---
d-dimer 1.10. dr roy
[2023-10-28 12:03] LABS: BNP,B-Type NATRIURETIC PEPTIDE 67.5 pg/mL (0-100)
[2023-10-28 12:08] LABS: Lactic Acid 1.4 mmol/L (0.4-1.9)
[2023-10-28 12:09] LABS: Troponin-I HS 7 pg/mL (3.0-54.0)
--- NOTE | 2023-10-28 12:17 | CT_ITS ---
STUDY: CTA CHEST REASON FOR EXAM: Female, 63 years old. Dyspnea, elevated d-dimer RADIATION DOSAGE (If Supplied By Facility): CTDIvol = ( 16.18 ) mGy, DLP = ( 459.44 ) mGycm TECHNIQUE: The examination was performed with the intravenous administration of IV 100mL Isovue-370. Post-processing of the angiographic images was performed, with multiplanar reformation and 3D reconstruction. Individualized dose optimization techniques were used for this CT. COMPARISON: None. FINDINGS: Normal enhancement of the main pulmonary artery and right and left pulmonary arteries. Normal enhancement of the bilateral peripheral pulmonary arteries. There is no demonstrated pulmonary embolism. There is atherosclerotic calcification of the aortic arch with tortuosity. There is no demonstrated aortic dissection. There are calcifications of the coronary arteries. There are visualized mediastinal lymph nodes, which are within normal size limits, and with normal morphology. Normal hilar regions. Normal visualized trachea and bronchi. The lungs are well expanded. Patchy infiltrates are seen in both upper lobes worse in the right upper lobe. There is also evidence of patchy infiltrates in the right middle lobe as well as in the right lower lung. Radiographic follow-up recommended. Normal pleura. Normal chest wall structures. There are degenerative changes of thoracic spine. Hiatal hernia. CT/CTA Chest W/WO Contrast IMPRESSION: No evidence of pulmonary emboli. Bilateral pulmonary infiltrates as described. Radiographic follow-up recommended. Electronically Signed: Nba Molina MD at 13:30 EDT ,
[2023-10-28 12:38] LABS: Anion Gap 7 (5-15); BUN 16 mg/dL (7-18); BUN/Creat Ratio 13.8 RATIO (10-20); Calcium,Total 8.7 mg/dL (8.5-10.1); Chloride 99 mmol/L (98-107); Creatinine, Serum 1.16 mg/dL (0.55-1.02); EST Glomerular Filtration Rate 50 mL/min (>60); Est Glom Filt Rate - Afr Amer 61 mL/min (>60); Estimated Creatinine Clearance 48.88 ml/min; Glucose 155 mg/dL (74-106); Potassium 3.6 mmol/L (3.5-5.1); Sodium Level 132 mmol/L (136-145)
--- NOTE | 2023-10-28 13:49 | HP.PCM.HOS_ITS ---
HPI - General General Date of Admission: 10/28/23 Date of Service: 10/28/23 Chief Complaint: shortness of breath HPI Narrative CHRISTIANO QUESADA, is a 63 F with a PMH as outlined who presents via the ED with a complaint of shortness of breath. She was seen by her oncologist's nurse practitioner today, and was told that her oxygen saturation was low, so she was sent to the EDM She said she had a cough productive of yellowish phlegm which had been going on for a few days. She had no associated fever or chills or increased sweating. Review of systems was otherwise negative. Vitals in the ED were BP of 102/53, MS of 102, RR of 16 and she was on 3L of oxygen by nasal cannula. CBC showed Hb of 10.8, wbc of 10.8, platelets of 167 and D dimer was 1.1. Chemistry showed sodium of 132 with Cr of 1.16. BNP was 67.5 and initial troponin was 7. CTA chest was negative for any evidence of PE and showed bilateral pulmonary infiltrates. She is being admitted to be managed for hypoxia due to pneumonia in the setting of multiple myeloma, on chemotherapy. [facility]LY [facility] Medical History Acute cholecystitis Anemia Arthritis Asthma Bilateral edema of lower extremity Carpal tunnel syndrome on right Chronic cough CPAP (continuous positive airway pressure) dependence DDD (degenerative disc disease) Depression Diabetes Dietary restriction Essential hypertension Fibromyalgia Former smoker Gastric reflux GERD (gastroesophageal reflux disease) History of edema History of edema Incisional hernia Low iron Restless legs Sleep apnea Syncope Wears dentures Home Medications ?Medication ?Instructions ?Recorded ?Last Taken ?Type albuterol sulfate 90 mcg/actuation 2 puff inhalation Q4H PRN breathing 11/14/19 Unknown History aerosol inhaler (Ventolin HFA) cholecalciferol (vitamin D3) 25 25 mcg PO DAILY SUPPLEMENT 11/14/19 05/25/20 History mcg (1,000 unit) capsule cromolyn 4 % eye drops 1 drp ophthalmic (eye) 6XD EYE 11/14/19 05/25/20 History IRRITATION dicyclomine 10 mg capsule 10 mg PO Q6H PRN ibs 11/14/19 Unknown History ferrous sulfate 325 mg (65 mg 325 mg PO BID SUPPLEMENT 11/14/19 05/25/20 History iron) tablet fexofenadine 60 mg tablet (Rubia 60 mg PO BID PRN seasonal allergies 11/14/19 Unknown History Allergy) fluticasone propionate 50 1 spray intranasal DAILY NASAL 11/14/19 05/25/20 History mcg/actuation nasal CONGESTION spray,suspension (Allergy Relief (fluticasone)) furosemide 40 mg tablet 40 mg PO DAILY 11/14/19 05/25/20 History montelukast 10 mg tablet 10 mg PO QHS ALLERGIES 11/14/19 05/24/20 History (Singulair) pantoprazole 40 mg tablet,delayed 40 mg PO DAILY HEARTBURN 11/14/19 01/09/21 05:30 History release paroxetine HCl 10 mg tablet 10 mg PO QHS 11/14/19 05/25/20 History pramipexole 1 mg tablet 1 mg PO QHS 11/14/19 05/24/20 History sucralfate 1 gram tablet (Carafate) 1 g PO QACHS #120 tabs 06/05/20 Unknown Rx cyclobenzaprine 10 mg tablet 10 mg PO TID PRN muscle spasm #60 04/01/21 Unknown Rx tabs amitriptyline 25 mg tablet 25 mg PO QHS DEPRESSION 11/04/21 Unknown History levocetirizine 5 mg tablet 5 mg PO DAILY 11/04/21 Unknown History bumetanide 1 mg tablet 1 mg PO DAILY FLUID RETENTION 10/28/23 Unknown History semaglutide 0.25 mg or 0.5 mg (2 0.25 mg subcut QWEEK BLOOD SUGAR 10/28/23 Unknown History mg/3 mL) subcutaneous pen injector CONTROL (Ozempic) Allergy/AdvReac Type Severity Reaction Status Date / Time egg Allergy Severe Hives, Verified 04/12/22 10:01 Swelling, Vomiting acetaminophen (From Tylenol) Allergy Mild rash Verified 04/12/22 10:01 gabapentin AdvReac Severe Hallucinati Verified 04/12/22 10:01 ons Family History Mother Heart disease Hypertension Diabetes Kidney disease Aunt Cancer Sister Arthritis Surgical History history lap will/ERCP (~05/26/20) History of arthroscopic surgery of elbow History of foot surgery History of ventral hernia repair Hx laparoscopic cholecystectomy Hx of colonoscopy Hx of shoulder surgery Social History household members: spouse and children housing: house number of children: 1 Smoking Status: Current some day smoker tobacco type: cigarettes alcohol intake: never substance use type: does not use what type of physical activity do you participate in: walking frequency: daily do you feel safe at home: Yes ROS Constitutional Constitutional: Reports fatigue, malaise and weakness; Denies anorexia, change in weight or fever(s) Eyes Eyes: Denies change in vision ENT HEENT: Denies dysphagia, headache(s) or sore throat Cardiovascular Cardiovascular: Reports dyspnea on exertion; Denies chest pain, edema, lightheadedness, orthopnea or palpitations Respiratory/Chest Respiratory/Chest: Reports cough, dyspnea, excessive phlegm production, productive cough, shortness of breath at rest and shortness of breath with exertion; Denies hemoptysis or wheezing Gastrointestinal Gastrointestinal: Denies abdominal pain, constipation, diarrhea, dyspepsia, melena, nausea or vomiting Genitourinary Genitourinary: Denies dysuria Musculoskeletal Musculoskeletal: Denies arthralgias Neurologic Neurologic: Denies confusion, dizziness, focal weakness, headache(s), numbness, seizures or syncope Psychiatric Psychiatric: Denies anxiety or depression Endocrine Endocrinology: Denies change in body appearance Hematologic/Lymphatic Hematologic/Lymphatic: Denies anemia Vital Signs Vital Signs Vital Signs: 10/28/23 11:05 10/28/23 11:20 10/28/23 11:38 Temperature 98.2 F Temperature Source Temporal Pulse Rate 117 H 114 H Respiratory Rate 22 H 20 H Respiratory Effort Respiratory Pattern Blood Pressure 129/60 H Blood Pressure Mean 83 Pulse Ox 98 90 Oxygen Delivery Method Room Air Nasal Cannula Oxygen Flow Rate (L/min) 3 10/28/23 11:52 10/28/23 13:05 Temperature Temperature Source Pulse Rate 102 H Respiratory Rate 16 Respiratory Effort Normal Short of Breath Respiratory Pattern Normal Blood Pressure 102/53 L Blood Pressure Mean 69 Pulse Ox 92 Oxygen Delivery Method Nasal Cannula Oxygen Flow Rate (L/min) 3 Weight Weight: 175 lb Body Mass Index (BMI) 30.9 Physical Exam Const alert, oriented x3 and no apparent distress General Appearance: cooperative HEENT normocephalic, head/scalp atraumatic, hearing grossly normal bilaterally and moist oral mucous membranes Mouth: oral and palatal mucosa normal Eyes PERRL, EOMs intact bilaterally and conjunctivae normal Neck no lymphadenopathy and supple Resp Resp Narrative: moderately diminished breath sounds bibasally, no wheezes or crackles. On 3L of oxygen by nasal canula. Cardio regular rate, regular rhythm, S2 normal heart sound and no murmurs GI normal to inspection, nondistended, normoactive bowel sounds, soft to palpation and non-tender Extremity normal to inspection, full ROM and no clubbing, cyanosis or edema Neuro oriented x3, CN's II-XII intact bilaterally and moves all extremities Sensorium / Orientation: awake and alert Motor Exam: strength 5/5 throughout Psych affect normal Results Lab / Micro Data 10/28/23 11:30 10/28/23 11:30 Labs: Laboratory Results - last 24 hr 10/28/23 11:30: WBC 10.8, RBC 3.44 L, Hgb 10.8 L, Hct 33.7 L, MCV 98.0, MCH 31.4, MCHC 32.0, RDW Std Deviation 56.6 H, RDW Coeff of Esteban 15.9 H, Plt Count 167, MPV 10.3, Immature Gran % (Auto) 0.600, Neut % (Auto) 83.0 H, Lymph % (Auto) 5.5 L, [place] % (Auto) 10.1 H, Eos % (Auto) 0.4, Baso % (Auto) 0.4, A bsolute Neuts (auto) 9.0 H, Absolute Lymphs (auto) 0.60 L, Nucleated RBC % 0, D- Dimer Quant (PE/DVT) 1.10 H*, Sodium 132 L, Potassium 3.6, Chloride 99, Carbon Dioxide 26.0, Anion Gap 7, BUN 16, Creatinine 1.16 H, Estim Creat Clear Calc 48.88, Est GFR (MDRD) Af Amer 61, Est GFR (MDRD) Non-Af 50 L, BUN/Creatinine Ratio 13.8, Glucose 155 H, Lactic Acid 1.4, Calcium 8.7, Troponin I High Sens 7, B-Natriuretic Peptide 67.5 Micro: Microbiology 10/28/23 11:34 Mucosa - Nose SARS-CoV-2, Influenza & RSV (PCR) - Final Imaging Radiology Impression Chest CTA 10/28/23 12:17 IMPRESSION: No evidence of pulmonary emboli. Bilateral pulmonary infiltrates as described. Radiographic follow-up recommended. Electronically Signed: Nba Molina MD at 13:30 EDT , Assessment & Plan Assessment/Plan (1) Hypoxemia: (2) Pneumonia: PLAN: Plan #HYpoxia due to pneumonia * Admit to [facility] telemetry * Has been having a cough productive of yellow sputum for a few days. She is also felt weak but denied any fever or chills. * She was hypoxic when she went to see her oncologist today. She required 3 L of oxygen on arrival in the ED. * Chest x-ray showed evidence of bilateral infiltrates and CTA of the chest done on account of elevated D-dimer also showed evidence of bilateral infiltrates. * Patient was started on IV ceftriaxone and remains in the ED. In light of her immunosuppression and malignancy, we will start her on IV Zosyn. * Blood and sputum cultures as well as urine for strep and Legionella respiratory panel ordered. Breathing treatments bronchodilators. Titrate oxygen to maintain saturation above 90%. * #Multiple myeloma on chemotherapy * Last had chemotherapy last Tuesday and states she is due for chemotherapy this Tuesday. Patient counseled that in light of her active infection, her next hemotherapy session will likely be deferred until she is better. * Follow-up with oncologist Dr. Spence on outpatient basis. #Type 2 diabetes mellitus: Insulin sliding scale. Accu-Cheks ACHS. On semaglutide weekly shot #GERD: On PPI and sucralfate DVT prophylaxis; Lovenox Code status: full code * Patient counseled extensively about different types of CODE STATUS including full code, DNR CCA and DNR CCA. Patient elects to be full code. * Total [id number] time 17 minutes. Charges/Coding Visit Charges Inpatient E&M: 38502 Init Hosp L3 Procedures Hospitalists Procedures: 88102 Advncd Care Plan 30 Min
[2023-10-28] MEDS: Azithromycin 500 MG in Dextrose 5%-Water (250mL Bag) 250 ML 250 MG IV (14:21)
--- NOTE | 2023-10-28 15:25 | VDLE_ITS ---
Reason For Study: Bilateral leg swelling RIGHT LEFT GSV is normal. GSV is normal. CFV is compressible, spontaneous, phasic, CFV is compressible, spontaneous, phasic, competent and demonstrates normal competent, and demonstrates normal augmentation. augmentation. FV is compressible, spontaneous, phasic, FV is compressible, spontaneous, phasic, competent and demonstrates normal competent and demonstrates normal augmentation. augmentation. POP V is compressible, spontaneous, phasic, POP V is compressible, spontaneous, phasic, competent and demonstrates normal competent and demonstrates normal augmentation. augmentation. T/P Trunk is compressible. T/P Trunk is compressible. PTV is compressible. PTV is compressible. RT PerV is compressible. LT PerV is compressible. Procedure Nonvascularized structure noted in the left This is a venous duplex using B-mode, color groin that measures 2.75 x 1.1 cm. flow and spectral Doppler. Exam performed portable in patient room. A preliminary report was called and/or faxed to [facility]. VL/Venous Duplex US - [place] Extrem Interpretation Summary Deep veins of the bilateral lower extremities are patent and compressible segme ntally. There is no evidence of bilateral lower extremity deep vein thrombosis. The bilaterarl grea t saphenous veins appear patent and compressible segmentally. Nonvascularized structure noted in the left groin that measures 2.75 x 1.1 cm. Ordering Physician: Kaitlyn Sorto Referring Physician: Christelle Retana Performed By: Merary Nicholas RVT
[2023-10-28] MEDS: 0.9% Normal Saline (1000mL) 1,000 ML 125 ML IV (15:59)
[2023-10-28] MEDS: Ceftriaxone 1 GM/50 ML BAG IV (17:43)
[2023-10-28 18:34] LABS: Bedside Glucose 139 mg/dL (74-106)
[2023-10-28] MEDS: Insulin Lispro 100 UNIT/ML INSULN.PEN SC (21:20)
[2023-10-28] MEDS: Piperacil/Tazobactam 3.375 GM in 0.9% Normal Saline (50mL MB+) 50 ML IV (21:20)
[2023-10-28 21:49] LABS: Bedside Glucose 159 mg/dL (74-106)
[2023-10-28] MEDS: oxyCODONE 5 MG Tablet PO (21:57)
[2023-10-28] MEDS: Benzonatate 100 MG Capsule PO (21:58)
[2023-10-29] VITALS (9 sets, daily range): BP systolic 92–110; BP diastolic 48–61; PULSE 77–89; RESP 18–20; TEMP 36.6–36.9; O2SAT 89–98
[2023-10-29] MEDS: 0.9% Normal Saline (1000mL) 1,000 ML 125 ML IV (00:29)
[2023-10-29] MEDS: Ipratropium/Albuterol Sulfate 3 ML AMPUL.NEB INHALATION ×2 (01:19→07:55)
[2023-10-29] MEDS: Piperacil/Tazobactam 3.375 GM in 0.9% Normal Saline (50mL MB+) 50 ML IV (05:55)
[2023-10-29 05:57] LABS: Absolute Lymphocyte Count 0.74 X10^3/uL (0.83-4.51); Absolute Neutrophil Count 7.1 X10^3/uL (2.0-7.7); Basophil# 0.02 X10^3/uL; Basophil% 0.2 % (0-1); Eosinophil# 0.11 X10^3/uL; Eosinophils% 1.2 % (0-5); Hematocrit 30.6 % (37-47); Hemoglobin 9.5 g/dL (12.0-15.0); Lymphocyte # 0.74 X10^3/ul (0.83-4.51); Mean Platelet Vol. 10.4 fl (6.2-12.0); Monocyte# 1.11 X10^3/uL; NRBC Flagged by Analyzer 0 % (0-5); Neutrophil # 7.14 X10^3/uL (2.7-7.7); Neutrophil % 77.3 % (47-70); Platelet Count 168 K/mm3 (150-450); RBC Distribution Width CV 16.2 % (11.6-14.6); RBC Distribution Width SD 58.8 fl (35.1-43.9); Red Blood Count 3.06 M/mm3 (4.2-5.4); White Blood Count 9.2 K/mm3 (4.4-11.0)
[2023-10-29] MEDS: Benzonatate 100 MG Capsule PO (06:10)
[2023-10-29 06:43] LABS: Anion Gap 4 (5-15); BUN 13 mg/dL (7-18); Calcium,Total 8.2 mg/dL (8.5-10.1); Chloride 102 mmol/L (98-107); Creatinine, Serum 0.87 mg/dL (0.55-1.02); EST Glomerular Filtration Rate 70 mL/min (>60); Est Glom Filt Rate - Afr Amer 84 mL/min (>60); Estimated Creatinine Clearance 73.06 ml/min; Glucose 123 mg/dL (74-106); Potassium 3.7 mmol/L (3.5-5.1); Sodium Level 133 mmol/L (136-145)
[2023-10-29 06:50] LABS: Bedside Glucose 124 mg/dL (74-106)
[2023-10-29] MEDS: oxyCODONE 5 MG Tablet PO (08:33)
[2023-10-29] MEDS: Enoxaparin 40 MG/0.4 ML Syringe SC (08:33)
--- NOTE | 2023-10-29 09:50 | CASEMGMT ---
NURIA SALGADO Face to Face with patient for initial transition planning/care coordination assessment. NURIA SALGADO introduced self and role at [facility]. Patient lying in bed, alert and oriented. Patient willing to participate in assessment and is able to answer all questions appropriately. Care providers, pharmacy, and demographics verified. PCP: Mazin Specialists: Lesly, oncologist: Derrick, nephrolgoist Preferred Pharmacy: [facility], [place] Insurance: [employer] Prescription Benefit: yes Living Will/HPOA: yes, sister in law Marcy Dodson LNOK: sister in law Living Arrangements: Patient lives with 5yo son that [id number] is caring for at this time. Patient lives in a mobile home with 6 steps and railing to enter the home. Transportation: self, neighbor, MARYAM, friends DME/HHC: Patient states she has BSC, cpap, pulse ox, glucometer at home. No previous HHC or SNF. Will monitor for home oxygen at discharge. NURIA SALGADO called [employer] to inquire about in-network DME agencies. Per [employer] [facility] [employer] [facility] is used for DME and HHC setup. NURAI SALGADO attempted to call [facility] to inquire about in-network DME agencies, no answer. NURIA SALGADO updated by nursing that patient did not qualify for home oxygen at discharge. Patient wishes to discharge home, denies need for home health at this time. Patient states she has no further needs or concerns at this time. CM to follow for discharge planning needs that may arise. Disposition Plan: Patient to discharge home with family support and follow-up plans in place. Merary CISSE, RN, CM
[2023-10-29] MEDS: Ibuprofen 200 MG Tablet PO (10:39)
[2023-10-29 11:01] LABS: Bedside Glucose 121 mg/dL (74-106)
--- NOTE | 2023-10-29 13:01 | PCM.DC ---
Discharge Instructions Diet Discharge Diet: Low fat / Low cholesterol Activity Discharge Activity: Return to Normal Activity Dressing / Incision Call your doctor if you observe: Fever of 101 or Higher, Shortness of breath, Dizziness, Fainting spells, Swelling in the ankles, Chest pain and Increased palpitations (irregular heartbeat) Follow Up Care Test Results: Test results from this visit will be discussed in further detail at your follow-up appointment, if applicable. Discharge Plan Admission Admit Date/Time: 10/28/23 14:20 Attending Provider: Oswald Eubanks Primary Care Provider: Christelle Retana Consulting Providers: Kaitlyn Sorto Discharge Orders/Prescriptions Prescriptions: New benzonatate 100 mg Capsule 100 mg PO Q8H PRN PRN (Reason: Cough) 4 Days Qty: 12 0RF levofloxacin 750 mg tablet 750 mg PO DAILY Qty: 7 0RF Continued pantoprazole 40 mg tablet,delayed release (DR/EC) 40 mg PO DAILY montelukast [Singulair] 10 mg tablet 10 mg PO QHS dicyclomine 10 mg capsule 10 mg PO Q6H PRN (Reason: ibs) pramipexole 1 mg tablet 1 mg PO QHS fluticasone propionate [Allergy Relief (fluticasone)] 50 mcg/actuation spray,suspension 1 spray INTRANASAL DAILY Rx Instructions: administer into each nostril cholecalciferol (vitamin D3) 25 mcg (1,000 unit) capsule 25 mcg PO DAILY albuterol sulfate [Ventolin HFA] 90 mcg/actuation HFA aerosol inhaler 2 puff INHALATION Q4H PRN (Reason: breathing) cromolyn 4 % drops 1 drp OPHTHALMIC 6XD Patient Comments: PT STATES SHE CANNOT USE 6 TIMES DAILY BECAUSE IT MAKES HER EYE TOO DRY. ONLY USES WHEN EYES ARE ITCHY fexofenadine [Rubia Allergy] 60 mg tablet 60 mg PO BID PRN (Reason: seasonal allergies) ferrous sulfate 325 mg (65 mg iron) tablet 325 mg PO BID cyclobenzaprine 10 mg tablet 10 mg PO TID PRN (Reason: muscle spasm) Qty: 60 0RF amitriptyline 25 mg tablet 25 mg PO QHS levocetirizine 5 mg tablet 5 mg PO .COMPLEX PRN (Reason: allergy symptoms) Rx Instructions: 5 mg orally PRN; at bedtime bumetanide 1 mg tablet 1 mg PO DAILY Ozempic 0.25 mg or 0.5 mg (2 mg/3 mL) pen injector 0.25 mg subcut QWEEK Patient Comments: UNABLE TO SAY WHAT DAY OF THE WEEK Referrals / Follow Up: Christelle Retana, [Primary Care Provider] - Within 1 Week Disposition Disposition (needs filled in before D/C Order can be placed): Home, Self Care
--- NOTE | 2023-10-29 13:49 | DS.PCM_ITS ---
Providers Date of Admission: 10/28/23 Primary Care Physician: Dr. Christelle Retana, DO Reason For Visit: PNEUMONIA, HYPOXIA Diagnosis Discharge Diagnosis (1) Hypoxemia: Status: Acute Code(s): R09.02 - Hypoxemia (2) Pneumonia: Status: Acute Code(s): J18.9 - Pneumonia, unspecified organism Medications at Discharge Home Medications albuterol sulfate 90 mcg/actuation aerosol inhaler (Ventolin HFA) 2 puff inhalation Q4H PRN breathing 11/14/19 cholecalciferol (vitamin D3) 25 mcg (1,000 unit) capsule 25 mcg PO DAILY SUPPLEMENT 11/14/19 cromolyn 4 % eye drops 1 drp ophthalmic (eye) 6XD EYE IRRITATION 11/14/19 dicyclomine 10 mg capsule 10 mg PO Q6H PRN ibs 11/14/19 ferrous sulfate 325 mg (65 mg iron) tablet 325 mg PO BID SUPPLEMENT 11/14/19 fexofenadine 60 mg tablet (Rubia Allergy) 60 mg PO BID PRN seasonal allergies 11/14/19 fluticasone propionate 50 mcg/actuation nasal spray,suspension (Allergy Relief (fluticasone)) 1 spray intranasal DAILY NASAL CONGESTION 11/14/19 montelukast 10 mg tablet (Singulair) 10 mg PO QHS ALLERGIES 11/14/19 pantoprazole 40 mg tablet,delayed release 40 mg PO DAILY HEARTBURN 11/14/19 pramipexole 1 mg tablet 1 mg PO QHS restless leg 11/14/19 cyclobenzaprine 10 mg tablet 10 mg PO TID PRN muscle spasm #60 tabs 04/01/21 amitriptyline 25 mg tablet 25 mg PO QHS DEPRESSION 11/04/21 levocetirizine 5 mg tablet 5 mg PO .COMPLEX PRN allergy symptoms 11/04/21 bumetanide 1 mg tablet 1 mg PO DAILY FLUID RETENTION 10/28/23 semaglutide 0.25 mg or 0.5 mg (2 mg/3 mL) subcutaneous pen injector (Ozempic) 0.25 mg subcut QWEEK BLOOD SUGAR CONTROL 10/28/23 benzonatate 100 mg capsule 100 mg PO Q8H PRN PRN Cough 4 days #12 caps 10/29/23 levofloxacin 750 mg tablet 750 mg PO DAILY #7 tabs 10/29/23 Hospital Course Operations None Procedures None Summary of Care Provided Minutes Spent on Discharge: 35 Hospital Course: Per HPI: CHRISTIANO QUESADA, is a 63 F with a PMH as outlined who presents via the ED with a complaint of shortness of breath. She was seen by her oncologist's nurse practitioner today, and was told that her oxygen saturation was low, so she was sent to the EDM She said she had a cough productive of yellowish phlegm which had been going on for a few days. She had no associated fever or chills or increased sweating. Review of systems was otherwise negative. Vitals in the ED were BP of 102/53, TX of 102, RR of 16 and she was on 3L of oxygen by nasal cannula. CBC showed Hb of 10.8, wbc of 10.8, platelets of 167 and D dimer was 1.1. Chemistry showed sodium of 132 with Cr of 1.16. BNP was 67.5 and initial troponin was 7. CTA chest was negative for any evidence of PE and showed bilateral pulmonary infiltrates. She is being admitted to be managed for hypoxia due to pneumonia in the setting of multiple myeloma, on chemotherapy. Hospital Course: 1. Hypoxia secondary to pneumonia?63-year-old female with history of multiple myeloma on chemotherapy presented to the hospital from her oncologist office secondary to hypoxia. She was found to have multifocal pneumonia and initially was started on Rocephin and azithromycin however she was broadened to Zosyn secondary to her immunosuppression. Today she had an ambulatory pulse ox that did not demonstrate need for oxygen as she was 89% on room air with ambulation and 94% at rest on room air. She request to be discharged home I discussed with her that we do not have any culture data back in terms of blood culture sputum culture but she would still prefer to go home. She expressed understanding of the risks and benefits of discharge and I did indicate to her that it could take 24 to 48 hours for culture data come back and she still would like to go home. Will plan on Levaquin for 7 days on discharge at 750 mg p.o. daily. I do recommend that she follow-up with her PCP early next week and to return to the hospital if she has worsening of symptoms. 2. Multiple myeloma, type 2 diabetes, GERD, iron deficiency anemia, asthma are chronic medical conditions which complicate her care. Her home medications were continued where appropriate. Physical Exam Narrative General: Alert, Oriented x3, Cooperative, No apparent distress HEENT: Atraumatic, PERRLA, EOMI, Normocephalic Oral: Moist Mucosa Neck: Supple, No JVD Lungs: Diminished, Normal air movement, No rhonchi, No wheeze, No rales Cardiovascular: Regular rate, Regular Rhythm, Normal S1, Normal S2, No murmurs Abdomen: Soft, Non Tender, Non-Distended, No Hepato-splenomegaly Extremities: Trace edema, Capillary Refill Less than 3 Seconds Skin: No rashes, No breakdown Musculoskeletal: No Tenderness to Palpation of Joints or Extremities Neurological: No focal neurological deficits, Motor Exam 5/5 strength throughout, Sensory exam intact to light touch and pain Psych/Mental Status: Normal Affect, Appropriate Weight / BMI Weight Weight: 217 lb 2.485 oz Body Mass Index (BMI) 38.5 ABG / Lab / Microbiology Data 10/29/23 05:35 10/29/23 05:35 Laboratory: Laboratory Results - last 24 hr 10/28/23 16:49: POC Glucose 139 H 10/28/23 21:12: POC Glucose 159 H 10/29/23 05:35: WBC 9.2, RBC 3.06 L, Hgb 9.5 L, Hct 30.6 L, MCV 100.0 H, MCH 31.0, MCHC 31.0 L, RDW Std Deviation 58.8 H, RDW Coeff of Esteban 16.2 H, Plt Count 168, MPV 10.4, Immature Gran % (Auto) 1.300 H, Neut % (Auto) 77.3 H, Lymph % (Auto) 8.0 L, [place] % (Auto) 12.0 H, Eos % (Auto) 1.2, Baso % (Auto) 0.2, Absolute Neuts (auto) 7.1, Absolute Lymphs (auto) 0.74 L, Nucleated RBC % 0, S odium 133 L, Potassium 3.7, Chloride 102, Carbon Dioxide 27.0, Anion Gap 4 L, BUN 13, Creatinine 0.87, Estim Creat Clear Calc 73.06, Est GFR (MDRD) Af Amer 84, Est GFR (MDRD) Non-Af 70, BUN/Creatinine Ratio 15.0, Glucose 123 H, Calcium 8.2 L 10/29/23 06:06: POC Glucose 124 H 10/29/23 10:41: POC Glucose 121 H Microbiology: Microbiology 10/29/23 02:15 Urine, Clean Catch Legionella Antigen - Final 10/29/23 02:15 Urine, Clean Catch Streptococcus pneumoniae Antigen (M - Final 10/28/23 17:14 Mucosa - Nose Respiratory Panel (PCR) - Final 10/28/23 11:34 Mucosa - Nose SARS-CoV-2, Influenza & RSV (PCR) - Final D/C Instructions Discharge Diet: Low fat / Low cholesterol Call your doctor if you observe: Fever of 101 or Higher, Shortness of breath, Dizziness, Fainting spells, Swelling in the ankles, Chest pain and Increased palpitations (irregular heartbeat) Meaningful Use Info Meaningful Use Meaningful Use Diagnoses (Choose all that apply): None applicable Ischemic Stroke Statin Dosing Therapy Reference: STATIN DOSE THERAPY REFERENCE: * Patients > 75 years receive moderate or high dose statin therapy. * Patients 75 years or YOUNGER should receive HIGH intensity statin dose unless contraindicated. You will be required to document reason for non-treatment if statin daily dose does not meet guidelines. HIGH DOSE STATIN THERAPY DAILY Atorvastatin > than or = to 40 mg Rosuvastatin > than or = to 20 mg Amlodipine + Atorvastatin > than or = to 2.5/40 mg Ezetimibe + Simvastatin 10/80 mg Simvastatin 80mg Discharge Plan Admission Admit Date/Time: 10/28/23 14:20 Attending Provider: Oswald Eubanks Primary Care Provider: Christelle Retana Consulting Providers: Kaitlyn Sorto Discharge Orders/Prescriptions Prescriptions: New benzonatate 100 mg Capsule 100 mg PO Q8H PRN PRN (Reason: Cough) 4 Days Qty: 12 0RF levofloxacin 750 mg tablet 750 mg PO DAILY Qty: 7 0RF Continued pantoprazole 40 mg tablet,delayed release (DR/EC) 40 mg PO DAILY montelukast [Singulair] 10 mg tablet 10 mg PO QHS dicyclomine 10 mg capsule 10 mg PO Q6H PRN (Reason: ibs) pramipexole 1 mg tablet 1 mg PO QHS fluticasone propionate [Allergy Relief (fluticasone)] 50 mcg/actuation spray,suspension 1 spray INTRANASAL DAILY Rx Instructions: administer into each nostril cholecalciferol (vitamin D3) 25 mcg (1,000 unit) capsule 25 mcg PO DAILY albuterol sulfate [Ventolin HFA] 90 mcg/actuation HFA aerosol inhaler 2 puff INHALATION Q4H PRN (Reason: breathing) cromolyn 4 % drops 1 drp OPHTHALMIC 6XD Patient Comments: PT STATES SHE CANNOT USE 6 TIMES DAILY BECAUSE IT MAKES HER EYE TOO DRY. ONLY USES WHEN EYES ARE ITCHY fexofenadine [Rubia Allergy] 60 mg tablet 60 mg PO BID PRN (Reason: seasonal allergies) ferrous sulfate 325 mg (65 mg iron) tablet 325 mg PO BID cyclobenzaprine 10 mg tablet 10 mg PO TID PRN (Reason: muscle spasm) Qty: 60 0RF amitriptyline 25 mg tablet 25 mg PO QHS levocetirizine 5 mg tablet 5 mg PO .COMPLEX PRN (Reason: allergy symptoms) Rx Instructions: 5 mg orally PRN; at bedtime bumetanide 1 mg tablet 1 mg PO DAILY Ozempic 0.25 mg or 0.5 mg (2 mg/3 mL) pen injector 0.25 mg subcut QWEEK Patient Comments: UNABLE TO SAY WHAT DAY OF THE WEEK Referrals / Follow Up: Christelle Retana DO [Primary Care Provider] - Within 1 Week Disposition Disposition (needs filled in before D/C Order can be placed): Home, Self Care Charges/Coding Visit Charges Inpatient E&M: 60933 Disch Hosp >30min
[2023-10-29] MEDS: levoFLOXacin 750 MG Tablet PO (13:54)
== END 2023-10-29 14:37 | disposition home or self-care (01) | DRG 194 ==
LOC: ED 14:09 → MS3 14:54
PROVIDERS: Admitting Provider Student in an Organized Health Care Education/Training Program; Emergency Provider Emergency Medicine; PCP Family Medicine; Visit Provider Family Medicine
DX: J18.9 Pneumonia, unspecified organism (principal); C90.00 Multiple myeloma not having achieved remission; E11.9 Type 2 diabetes mellitus without complications; D50.9 Iron deficiency anemia, unspecified; K21.9 Gastro-esophageal reflux disease without esophagitis; I10 Essential (primary) hypertension; J45.909 Unspecified asthma, uncomplicated; M79.7 Fibromyalgia; Z66 Do not resuscitate
CPT/HCPCS: 36415; 71275; 80048; 82962; 83605; 83880; 84484; 85025; 85379; 87040; 87070; 87205; 87449; 87631; 87633; 93005; 93970; 94640; 97161; 97166; 97802; 99284; J7030; Q9967; A4216

== ENCOUNTER → 2024-05-02 | Outpatient (CLI) | payer MEDICARE, SELFPAY | END | disposition home or self-care (01) | LOC: LABSPEC 13:20 | PROVIDERS: PCP Family Medicine; Referring Provider Internal Medicine Hematology & Oncology; Visit Provider Internal Medicine Hematology & Oncology | DX: C90.00 Multiple myeloma not having achieved remission (principal) | CPT/HCPCS: 86850; 86900; 86901 ==